=== PATIENT | male | born 1955 | race Caucasian/White ===

== ENCOUNTER 2016-11-11 16:58 | Observation (INO) | payer OTHER ==
[~2016-11-11] VITALS: Ht 188 cm; Wt 150.0 kg
[2016-11-11] MEDS ORDERED: NITROGLYCERIN 0.4 MG SL 25 TABS/BTL SL ONE (17:15)
[2016-11-11] MEDS ORDERED: SODIUM CHLORIDE 0.9% FLUSH 10 ML FLUSH IVF PRN (17:15)
[2016-11-11] MEDS ORDERED: ASPIRIN 325 MG TAB PO ONE (17:15)
[2016-11-11 17:22] VITALS: BP 143/89; PULSE 76; RESP 18; TEMP 98.1; O2SAT 95
[2016-11-11 17:25] VITALS: BP 138/86
--- NOTE | 2016-11-11 17:28 | PD ---
HPI Chief Complaint: Cardiac Complaint Time Seen by Provider: 17:24 Travel History International Travel<30 days: No Contact w/Intl Traveler<30days: No Traveled to known affect area: No History of Present Illness HPI 61-year-old male that presents to the ED via E back for evaluation of new-onset A. fib. Patient reports that he was at work at the [place] [facility] when he started feeling chest pressure and sensation of palpitations. Per patient he did not feel well and he was able to get a hold of one of the doctors there who happens to be his primary care doctor. He did some tests and found that he was in atrial fibrillation. Patient was given 20 mg bolus of diltiazem with resolution of the RVR and was given nitroglycerin as well for the pain. Patient 's pain seems to have improved. Per patient he has no history of atrial fibrillation. He does have a history of coronary artery disease but has not had any stents or CABG. He states that he takes blood pressure medications. Takes an aspirin every day. Denies taking any blood thinners. History of previous diabetes but states that currently under control. No allergies to medication. He states that currently he has some chest pressure but no actual pain. Per patient his discomfort is 4 out of 10. Denies any back pain. No abdominal pain. No shortness of breath. Patient cannot really tell me who the system auditor as as this was done at [facility] and he usually follows with a doctor from the [place] in [place]. PFSH Past Medical History Cardiac Catheterization: Yes Hypertension: Yes Social History Alcohol Use: No Tobacco Use: No Substance Use: No Allergies-Medications (Allergen,Severity, Reaction): Coded Allergies: No Known Allergies (Verified Allergy, Severe, 08/18/04) Reported Meds & Prescriptions Reported Meds & Active Scripts Active Reported Potassium Chloride ER (Potassium Chloride) 20 Meq Tab 20 Meq PO DAILY Lisinopril 5 Mg Tab 5 Mg PO DAILY Furosemide 40 Mg Tab 40 Mg PO DAILY Aspirin Low Dose (Aspirin) 81 Mg Chew 81 Mg CHEW DAILY Amlodipine (Amlodipine Besylate) 10 Mg Tab 10 Mg PO DAILY Review of Systems Except as stated in HPI: all other systems reviewed are Neg Physical Exam Narrative GENERAL: SKIN: Warm and dry. HEAD: Atraumatic. Normocephalic. EYES: Pupils equal and round. No scleral icterus. No injection or drainage. ENT: No nasal bleeding or discharge. Mucous membranes pink and moist. Tongue is midline. No uvula deviation. NECK: Trachea midline. No JVD. CARDIOVASCULAR: Irregular rate and rhythm. No murmurs, S3, S4. No reproducible chest pain with touch. RESPIRATORY: No accessory muscle use. Clear to auscultation. Breath sounds equal bilaterally. GASTROINTESTINAL: Abdomen soft, non-tender, nondistended. Hepatic and splenic margins not palpable. MUSCULOSKELETAL: Extremities without clubbing, cyanosis, or edema. No obvious deformities. Full range of motion of the upper and Lower extremities bilaterally. 2+ pulses bilaterally. NEUROLOGICAL: Awake and alert. No obvious cranial nerve deficits. Motor grossly within normal limits. Five out of 5 muscle strength in the arms and legs. Normal speech. PSYCHIATRIC: Appropriate mood and affect; insight and judgment normal. Data Data Last Documented VS Vital Signs Date Time Temp Pulse Resp B/P Pulse Ox O2 Delivery O2 Flow Rate FiO2 11/11/16 18:11 82 16 138/98 95 Room Air 11/11/16 17:22 98.1 Orders Electrocardiogram (11/11/16 17:10) B-Type Natriuretic Peptide (11/11/16 17:10) Ckmb (Isoenzyme) Profile (11/11/16 17:10) Complete Blood Count With Diff (11/11/16 17:10) Comprehensive Metabolic Panel (11/11/16 17:10) Magnesium (Mg) (11/11/16 17:10) Prothrombin Time / Inr (Pt) (11/11/16 17:10) Act Partial Throm Time (Ptt) (11/11/16 17:10) Troponin I (11/11/16 17:10) Chest, Single Ap (11/11/16 17:10) Ecg Monitoring (11/11/16 17:10) Bilateral Bp Monitoring (11/11/16 17:10) Iv Access Insert/Monitor (11/11/16 17:10) Oximetry (11/11/16 17:10) Oxygen Administration (11/11/16 17:10) Aspirin (Aspirin) (11/11/16 17:15) Sodium Chloride 0.9% Flush (Ns Flush) (11/11/16 17:15) Nitroglycerin Sl (Nitrostat Sl) (11/11/16 17:15) Thyroid Stimulating Hormone (11/11/16 17:40) CKMB (11/11/16 17:10) CKMB% (11/11/16 17:10) Admit Order (Ed Use Only) (11/11/16 19:17) Labs Laboratory Tests Test 11/11/16 17:10 White Blood Count 6.6 TH/MM3 Red Blood Count 4.13 MIL/MM3 Hemoglobin 12.9 GM/DL Hematocrit 38.5 % Mean Corpuscular Volume 93.2 FL Mean Corpuscular Hemoglobin 31.2 PG Mean Corpuscular Hemoglobin 33.5 % Concent Red Cell Distribution Width 13.4 % Platelet Count 177 TH/MM3 Mean Platelet Volume 9.7 FL Neutrophils (%) (Auto) 67.3 % Lymphocytes (%) (Auto) 19.2 % Monocytes (%) (Auto) 10.4 % Eosinophils (%) (Auto) 2.5 % Basophils (%) (Auto) 0.6 % Neutrophils # (Auto) 4.5 TH/MM3 Lymphocytes # (Auto) 1.3 TH/MM3 Monocytes # (Auto) 0.7 TH/MM3 Eosinophils # (Auto) 0.2 TH/MM3 Basophils # (Auto) 0.0 TH/MM3 CBC Comment DIFF FINAL Differential Comment Prothrombin Time 12.1 SEC Prothromb Time International 1.1 RATIO Ratio Activated Partial 26.8 SEC Thromboplast Time Sodium Level 142 MEQ/L Potassium Level 3.8 MEQ/L Chloride Level 110 MEQ/L Carbon Dioxide Level 22.6 MEQ/L Anion Gap 9 MEQ/L Blood Urea Nitrogen 15 MG/DL Creatinine 1.00 MG/DL Estimat Glomerular Filtration 76 ML/MIN Rate Random Glucose 115 MG/DL Calcium Level 8.8 MG/DL Magnesium Level 1.9 MG/DL Total Bilirubin 0.7 MG/DL Aspartate Amino Transf 22 U/L (AST/SGOT) Alanine Aminotransferase 27 U/L (ALT/SGPT) Alkaline Phosphatase 59 U/L Total Creatine Kinase 147 U/L Creatine Kinase MB 3.1 NG/ML Troponin I 0.02 NG/ML B-Type Natriuretic Peptide 281 PG/ML Total Protein 6.4 GM/DL Albumin 3.5 GM/DL Thyroid Stimulating Hormone 1.760 uIU/ML 3rd Gen [facility] Medical Decision Making Medical Screen Exam Complete: Yes Emergency Medical Condition: Yes Medical Record Reviewed: Yes Interpretation(s) EKG show H her fibrillation but no RVR. No sign of ischemia read by me and attending. CBC & BMP Diagram 11/11/16 17:10 CXR WNL troponin and CKMB WNL Coags WNL Differential Diagnosis Atrial fibrillation versus chest pain versus ACS versus A. fib and RVR versus arrhythmia versus CHF versus N STEMI Narrative Course 61-year-old male that presents to the ED for evaluation of possible A. fib. Patient was properly examined and was found to have signs and symptoms consistent with appears to be new onset A. fib. Patient still complains of some chest pressure and after given the diltiazem and the nitroglycerin. Patient was given 1 more dose of nitroglycerin here. Labs and imaging ordered. Here on EKG appears to be atrial fibrillation but no sign of RVR. Heart rate here is 79. Labs and imaging were essentially unremarkable this time. Patient' s heart rate has been stable. Case was discussed in my attending who agrees with admission secondary to chest pain and new onset A. fib. This was discussed with Dr. Sinha who agrees to admission. Procedures EKG Prior to Arrival: Yes Diagnosis Primary Impression: Atrial fibrillation Qualified Code: I48.91 - Atrial fibrillation, unspecified type Additional Impression: Chest pain in adult Admitting Information Admitting Physician Requests: Observation Pablo Marroquin November 11, 2016 17:28
[2016-11-11] MEDS ORDERED: LISI-519 PO (17:37)
[2016-11-11] MEDS ORDERED: ASPI81CH37 CHEW (17:37)
[2016-11-11] MEDS ORDERED: FURO40TA PO (17:37)
[2016-11-11] MEDS ORDERED: AMLO10TA2 PO (17:37)
[2016-11-11 17:38] LABS: AUTOMATED NEUTROPHIL # 4.5 TH/MM3 (1.8-7.7); BASOPHIL % 0.6 % (0.0-2.0); EOSINOPHIL # 0.2 TH/MM3 (0-0.4); EOSINOPHIL % 2.5 % (0.0-4.0); HEMATOCRIT 38.5 % (39.0-51.0); HEMO FLAGS DIFF FINAL; LYMPH % 19.2 % (9.0-44.0); LYMPHOCYTE # 1.3 TH/MM3 (1.0-4.8); MEAN CELL VOLUME 93.2 FL (80.0-100.0); MEAN CORPUSCULAR HEMOGLOBIN 31.2 PG (27.0-34.0); MEAN CORPUSCULAR HGB CONC 33.5 % (32.0-36.0); MONO % 10.4 % (0.0-8.0); NEUT % 67.3 % (16.0-70.0); PLATELET COUNT 177 TH/MM3 (150-450); RED BLOOD COUNT 4.13 MIL/MM3 (4.50-5.90); RED CELL DISTRIBUTION WIDTH 13.4 % (11.6-17.2); WHITE BLOOD COUNT 6.6 TH/MM3 (4.0-11.0)
[2016-11-11] MEDS ORDERED: POTA-163 PO (17:38)
[2016-11-11 17:41] LABS: APTT (PATIENT) 26.8 SEC (24.3-30.1); INTERNATIONAL NORMALIZED RATIO 1.1 RATIO; PROTHROMBIN TIME - PATIENT 12.1 SEC (9.8-11.6)
[2016-11-11 17:53] LABS: ALKALINE PHOSPHATASE 59 U/L (45-117); CREATINE KINASE 147 U/L (39-308); TOTAL BILIRUBIN ADULT 0.7 MG/DL (0.2-1.0)
--- NOTE | 2016-11-11 18:02 | RADRPT ---
EXAM DATE/TIME: 11/11/2016 17:42 [place] COMPARISON: No previous studies available for comparison. INDICATIONS : Chest pain and shortness of breath. MEDICAL HISTORY : Hypertension. SURGICAL HISTORY : None. ENCOUNTER: Initial ACUITY: 1 day PAIN SCORE: 3/10 LOCATION: chest FINDINGS: A single view of the chest demonstrates the lungs to be symmetrically aerated without evidence of mas s, infiltrate or effusion. The cardiomediastinal contours are unremarkable. Osseous structures are intact. CONCLUSION: No acute disease. Vinayak Houston MD on November 11, 2016 at 18:00 Board Certified Radiologist. This report was verified electronically.
[2016-11-11 18:05] LABS: CKMB 3.1 NG/ML (0.5-3.6)
[2016-11-11 18:11] VITALS: BP 138/98; PULSE 82; RESP 16; O2SAT 95
[2016-11-11 18:14] LABS: ALT (GPT) 27 U/L (12-78); ANION GAP 9 MEQ/L (5-15); AST (GOT) 22 U/L (15-37); BICARBONATE 22.6 MEQ/L (21.0-32.0); BLOOD UREA NITROGEN 15 MG/DL (7-18); CHLORIDE 110 MEQ/L (98-107); GLOMERULAR FILTRATION RATE 76 ML/MIN (>89); MAGNESIUM 1.9 MG/DL (1.5-2.5); POTASSIUM 3.8 MEQ/L (3.5-5.1); SODIUM (NA) 142 MEQ/L (136-145)
--- NOTE | 2016-11-11 18:35 | PD ---
Data Data Last Documented VS Vital Signs Date Time Temp Pulse Resp B/P Pulse Ox O2 Delivery O2 Flow Rate FiO2 11/11/16 18:11 82 16 138/98 95 Room Air 11/11/16 17:22 98.1 Orders Electrocardiogram (11/11/16 17:10) B-Type Natriuretic Peptide (11/11/16 17:10) Ckmb (Isoenzyme) Profile (11/11/16 17:10) Complete Blood Count With Diff (11/11/16 17:10) Comprehensive Metabolic Panel (11/11/16 17:10) Magnesium (Mg) (11/11/16 17:10) Prothrombin Time / Inr (Pt) (11/11/16 17:10) Act Partial Throm Time (Ptt) (11/11/16 17:10) Troponin I (11/11/16 17:10) Chest, Single Ap (11/11/16 17:10) Ecg Monitoring (11/11/16 17:10) Bilateral Bp Monitoring (11/11/16 17:10) Iv Access Insert/Monitor (11/11/16 17:10) Oximetry (11/11/16 17:10) Oxygen Administration (11/11/16 17:10) Aspirin (Aspirin) (11/11/16 17:15) Sodium Chloride 0.9% Flush (Ns Flush) (11/11/16 17:15) Nitroglycerin Sl (Nitrostat Sl) (11/11/16 17:15) Thyroid Stimulating Hormone (11/11/16 17:40) CKMB (11/11/16 17:10) CKMB% (11/11/16 17:10) Labs Laboratory Tests Test 11/11/16 17:10 White Blood Count 6.6 TH/MM3 Red Blood Count 4.13 MIL/MM3 Hemoglobin 12.9 GM/DL Hematocrit 38.5 % Mean Corpuscular Volume 93.2 FL Mean Corpuscular Hemoglobin 31.2 PG Mean Corpuscular Hemoglobin 33.5 % Concent Red Cell Distribution Width 13.4 % Platelet Count 177 TH/MM3 Mean Platelet Volume 9.7 FL Neutrophils (%) (Auto) 67.3 % Lymphocytes (%) (Auto) 19.2 % Monocytes (%) (Auto) 10.4 % Eosinophils (%) (Auto) 2.5 % Basophils (%) (Auto) 0.6 % Neutrophils # (Auto) 4.5 TH/MM3 Lymphocytes # (Auto) 1.3 TH/MM3 Monocytes # (Auto) 0.7 TH/MM3 Eosinophils # (Auto) 0.2 TH/MM3 Basophils # (Auto) 0.0 TH/MM3 CBC Comment DIFF FINAL Differential Comment Prothrombin Time 12.1 SEC Prothromb Time International 1.1 RATIO Ratio Activated Partial 26.8 SEC Thromboplast Time Sodium Level 142 MEQ/L Potassium Level 3.8 MEQ/L Chloride Level 110 MEQ/L Carbon Dioxide Level 22.6 MEQ/L Anion Gap 9 MEQ/L Blood Urea Nitrogen 15 MG/DL Creatinine 1.00 MG/DL Estimat Glomerular Filtration 76 ML/MIN Rate Random Glucose 115 MG/DL Calcium Level 8.8 MG/DL Magnesium Level 1.9 MG/DL Total Bilirubin 0.7 MG/DL Aspartate Amino Transf 22 U/L (AST/SGOT) Alanine Aminotransferase 27 U/L (ALT/SGPT) Alkaline Phosphatase 59 U/L Total Creatine Kinase 147 U/L Creatine Kinase MB 3.1 NG/ML Troponin I 0.02 NG/ML B-Type Natriuretic Peptide 281 PG/ML Total Protein 6.4 GM/DL Albumin 3.5 GM/DL MDM Supervised Visit with ALANA: Yes Narrative Course The history, exam, and medical decision-making in the associated midlevel provider note were completed with my assistance. I reviewed and agree with the findings presented. I attest that I had a [id number] encounter with the patient on the same day, and personally performed and documented my assessment and findings in the medical record. *My assessment and Findings: This is a 61-year-old male who presents the emergency department with chest pain and shortness of breath it's been present for 1 day. He is found to be in atrial fibrillation with RVR at the [place]. He is given a dose of IV diltiazem with EMS and his symptoms resolved. He currently has no chest pain. Labs are reassuring. Patient will be admitted for continued rate control and cardiology evaluation. He does have a history of coronary artery disease and says in 2010 he had a 60% blockage which was not able to be stented at that time. Karina Lemus MD November 11, 2016 18:35
[2016-11-11 19:15] VITALS: BP 141/108; PULSE 78; RESP 18; TEMP 98.4; O2SAT 96
--- NOTE | 2016-11-11 19:24 | HHI.HP ---
[facility] Admission Diagnosis new onset a. fib, chest pain Diagnoses: (1) New onset a-fib Diagnosis: Principal (2) Chest pain Diagnosis: Principal (3) Dehydration Diagnosis: Principal (4) HTN (hypertension) Diagnosis: Principal Travel History International Travel<30 Days: No Contact w/Intl Traveler <30 Da: No Traveled to Known Affected Are: No History of Present Illness This is a 61-year-old male with a PMH of HTN was brought here by EMS secondary to complaints of chest pain and palpitations. Patient is an employee at the [employer] and states he had sudden onset of symptoms earlier while at work. Upon EMS arrival, patient was found to be in A. fib with RVR, HR 120s, s/p Cardizem IV and NTG for c/o chest pain, now controlled. No h/o A-fib in the past. On arrival, BP 143/89, HR 76, O2 sat 95% on RA, Afebrile. CBC essentially unremarkable. Chemistry unremarkable except for GFR 76. BNP 281. Troponin negative. EKG with no acute ischemia. CXR with no acute findings. Currently chest pain-free. Review of Systems Except as stated in HPI: all other systems reviewed are Neg ROS: 14 point review of systems otherwise negative. Past Family Social History Past Medical History PMH: HTN Past Surgical History PAST SURGICAL HISTORY: None Allergies: Coded Allergies: No Known Allergies (Verified Allergy, Severe, 08/18/04) Family History PAST FAMILY HISTORY: Reviewed. No h/o DM or CAD Social History PAST SOCIAL HISTORY: Negative for alcohol, tobacco or drugs. Physical Exam Vital Signs Vital Signs Date Time Temp Pulse Resp B/P Pulse Ox O2 Delivery O2 Flow Rate FiO2 11/11/16 18:11 82 16 138/98 95 Room Air 11/11/16 17:25 Room Air 11/11/16 17:25 138/86 11/11/16 17:25 Room Air 11/11/16 17:25 Room Air 11/11/16 17:22 98.1 76 18 143/89 95 Physical Exam PE: GENERAL: Pleasant middle-aged white male in no acute distress. HEENT: PERRLA, EOMI. No scleral icterus or conjunctival pallor. No lid lag or facial droop. CARDIOVASCULAR: Irregularly irregular, in A. fib, rate controlled. No obvious murmurs to auscultation. No chest tenderness to palpation. RESPIRATORY: No obvious rhonchi or wheezing. Clear to auscultation. Breath sounds equal bilaterally. GASTROINTESTINAL: Abdomen soft, non-tender, nondistended. BS normal. MUSCULOSKELETAL: Extremities without clubbing, cyanosis, or edema. No obvious deformities. NEUROLOGICAL: Awake, alert and oriented x4. No focal neurologic deficits. Moving both upper and lower extremities spontaneously. Laboratory Laboratory Tests Test 11/11/16 17:10 White Blood Count 6.6 Red Blood Count 4.13 Hemoglobin 12.9 Hematocrit 38.5 Mean Corpuscular Volume 93.2 Mean Corpuscular Hemoglobin 31.2 Mean Corpuscular Hemoglobin 33.5 Concent Red Cell Distribution Width 13.4 Platelet Count 177 Mean Platelet Volume 9.7 Neutrophils (%) (Auto) 67.3 Lymphocytes (%) (Auto) 19.2 Monocytes (%) (Auto) 10.4 Eosinophils (%) (Auto) 2.5 Basophils (%) (Auto) 0.6 Neutrophils # (Auto) 4.5 Lymphocytes # (Auto) 1.3 Monocytes # (Auto) 0.7 Eosinophils # (Auto) 0.2 Basophils # (Auto) 0.0 CBC Comment DIFF FINAL Differential Comment Prothrombin Time 12.1 Prothromb Time International 1.1 Ratio Activated Partial 26.8 Thromboplast Time Sodium Level 142 Potassium Level 3.8 Chloride Level 110 Carbon Dioxide Level 22.6 Anion Gap 9 Blood Urea Nitrogen 15 Creatinine 1.00 Estimat Glomerular Filtration 76 Rate Random Glucose 115 Calcium Level 8.8 Magnesium Level 1.9 Total Bilirubin 0.7 Aspartate Amino Transf 22 (AST/SGOT) Alanine Aminotransferase 27 (ALT/SGPT) Alkaline Phosphatase 59 Total Creatine Kinase 147 Creatine Kinase MB 3.1 Troponin I 0.02 B-Type Natriuretic Peptide 281 Total Protein 6.4 Albumin 3.5 Thyroid Stimulating Hormone 1.760 3rd Gen Result Diagram: 11/11/16 1710 11/11/16 1710 Assessment and Plan Problem List: (1) New onset a-fib ICD Code: I48.91 Status: Acute (2) Chest pain ICD Code: R07.9 Status: Acute (3) Dehydration ICD Code: E86.0 Status: Acute (4) HTN (hypertension) ICD Code: I10 Status: Acute Assessment and Plan A/P: 1. A-fib: New-Onset. Acute c/o chest pain and palpitations, found to be in A- fib w/ RVR, HR 120's, s/p Cardizem IV by EMS, now rate-controlled. Admit for further Observation, telemetry, check serial enzymes, check Echo, start Metoprolol. Cardiology Consult for further evaluation. 2. Chest Pain: Likely secondary to above, r/o cardiac ischemia. Initial trop negative, EKG w/ no acute ischemia. Check serial enzymes, lipid profile, Hgb A1c, TSH normal. Continue ASA, start Statin and Metoprolol. Cardiology consult as above. 3. Dehydration: GFR 76, previously 96 on 08/19/04. IVF for hydration. Check U /a. Repeat labs in am. 4. HTN: BP 140's on arrival, currently 130's, will monitor. Start Metoprolol. 5. DVT Prophylaxis: Heparin sq 6. Social work for d/c planning as needed. 7. Case discussed at length w/ ER physician. Yoli Handy MD November 11, 2016 19:23
[2016-11-11] MEDS ORDERED: NITROGLYCERIN 2% OINT 1 GM PACKET TOPICAL PRN (19:30)
[2016-11-11] MEDS ORDERED: SODIUM CHLORIDE 0.9% FLUSH 10 ML FLUSH IV FLUSH PRN (19:30)
[2016-11-11] MEDS ORDERED: ACETAMINOPHEN 325 MG TAB PO PRN (19:30)
[2016-11-11] MEDS ORDERED: ONDANSETRON HCL 4 MG/2 ML VIAL IVP PRN (19:30)
[2016-11-11] MEDS ORDERED: MORPHINE SULFATE 4 MG/ML INJ IV PRN (19:30)
[2016-11-11] MEDS ORDERED: BISACODYL 10 MG SUPP RECTAL PRN (19:30)
[2016-11-11] MEDS ORDERED: ACETAMINOPHEN/HYDROcodone 325 MG/5 MG TAB PO PRN (19:30)
[2016-11-11 20:15] VITALS: BP 139/92; PULSE 84; RESP 17; TEMP 98.1; O2SAT 97
[2016-11-11] MEDS: SODIUM CHLOR 0.9% 1000 ML INJ 1,000 ML IV SCH (20:21)
[2016-11-11] MEDS: SODIUM CHLORIDE 0.9% FLUSH 10 ML FLUSH IV FLUSH SCH (20:22)
[2016-11-11] MEDS: HEPARIN SODIUM - SQ 10,000 UNITS/ML VIAL SQ SCH (20:22)
[2016-11-11] MEDS: METOPROLOL TARTRATE 25 MG TAB PO SCH (20:22)
[2016-11-11 23:19] LABS: BACTERIA, URINE FEW /hpf; BLOOD, URINE NEG (NEG); COMMENT (UR) CULTURE INDICATED; CULTURE IF INDICATED CULTURE INDICATED; GLUCOSE,URINE NEG (NEG); HYALINE CAST, URINE 4 /lpf (RARE); KETONE, URINE NEG (NEG); MUCUS URINE FEW /lpf (OCC); NITRITE,URINE NEG (NEG); SQUAMOUS EPITHELIAL CELL URINE 1 /hpf (0-5); URINE COLOR YELLOW (YELLW/STRAW)
[2016-11-12] MEDS: SODIUM CHLOR 0.9% 1000 ML INJ 1,000 ML IV SCH (05:19)
[2016-11-12 05:36] VITALS: BP 120/69; PULSE 86; RESP 18; TEMP 97.9; O2SAT 96
[2016-11-12 05:41] VITALS: PULSE 75
[2016-11-12] MEDS: HEPARIN SODIUM - SQ 10,000 UNITS/ML VIAL SQ SCH (06:01)
[2016-11-12 08:24] LABS: BASOPHIL % 0.5 % (0.0-2.0); EOSINOPHIL # 0.3 TH/MM3 (0-0.4); EOSINOPHIL % 4.2 % (0.0-4.0); HEMATOCRIT 40.5 % (39.0-51.0); HEMO FLAGS DIFF FINAL; LYMPH % 26.9 % (9.0-44.0); LYMPHOCYTE # 1.9 TH/MM3 (1.0-4.8); MEAN CELL VOLUME 93.6 FL (80.0-100.0); MEAN CORPUSCULAR HGB CONC 33.2 % (32.0-36.0); MONO % 10.9 % (0.0-8.0); NEUT % 57.5 % (16.0-70.0); PLATELET COUNT 172 TH/MM3 (150-450); RED BLOOD COUNT 4.33 MIL/MM3 (4.50-5.90); RED CELL DISTRIBUTION WIDTH 13.5 % (11.6-17.2)
[2016-11-12 08:33] VITALS: BP 175/190; PULSE 98; RESP 18; TEMP 96.8; O2SAT 95
[2016-11-12] MEDS ORDERED: PRAVASTATIN SOD 40 MG TAB PO SCH (09:00)
[2016-11-12] MEDS ORDERED: ASPIRIN EC 81 MG TABEC PO SCH (09:00)
[2016-11-12] MEDS: SODIUM CHLORIDE 0.9% FLUSH 10 ML FLUSH IV FLUSH SCH (09:00)
[2016-11-12 09:01] LABS: ALKALINE PHOSPHATASE 62 U/L (45-117); ALT (GPT) 26 U/L (12-78); ANION GAP 7 MEQ/L (5-15); AST (GOT) 15 U/L (15-37); BICARBONATE 26.8 MEQ/L (21.0-32.0); BLOOD UREA NITROGEN 14 MG/DL (7-18); CHLORIDE 108 MEQ/L (98-107); GLOMERULAR FILTRATION RATE 83 ML/MIN (>89); HDL CHOLESTEROL 46.7 MG/DL (40.0-60.0); LDL CHOLESTEROL 71 MG/DL (0-99); POTASSIUM 3.7 MEQ/L (3.5-5.1); SODIUM (NA) 142 MEQ/L (136-145); TOTAL BILIRUBIN ADULT 0.8 MG/DL (0.2-1.0)
[2016-11-12] MEDS: METOPROLOL TARTRATE 25 MG TAB PO SCH (09:07)
--- NOTE | 2016-11-12 09:11 | HHI.PR ---
Subjective Remarks Follow up for palpitations. The patient reports no further episodes of palpitations overnight. He states yesterday he was on the job at the [employer], walking from outside to inside, when he started experiencing his heart "racing" with severe shortness of breath and profuse diaphoresis, denies any chest pain. He states the feeling went away when [facility] arrived and he received IV Cardizem. The patient reports in 2010 he was experiencing angina symptoms and underwent cardiac catheterization in [place], noted to have some moderate coronary artery disease with one vessel 60% blockage, no stents were placed, and he was put on medical management with aspirin and metoprolol. Otherwise, the patient has not had any recent cardiac work up. Of note, the patient states he probably won't be able to stay in the hospital another night, states he has cats at home and nobody to take care of them. He states depending on what the barrel polisher recommends, he may need to sign himself out later today. Objective Vitals Vital Signs Date Time Temp Pulse Resp B/P Pulse Ox O2 Delivery O2 Flow Rate FiO2 11/12/16 08:33 96.8 98 18 175/190 95 11/12/16 05:41 75 11/12/16 05:36 97.9 86 18 120/69 96 11/11/16 21:08 18 11/11/16 20:15 98.1 84 17 139/92 97 11/11/16 19:15 98.4 78 18 141/108 96 11/11/16 18:11 82 16 138/98 95 Room Air 11/11/16 17:25 Room Air 11/11/16 17:25 138/86 11/11/16 17:25 Room Air 11/11/16 17:25 Room Air 11/11/16 17:22 98.1 76 18 143/89 95 Result Diagram: 11/12/16 0806 11/11/161709 Imaging Last Impressions Chest X-Ray 11/11/161709 Signed Impressions: Service Date/Time: Friday, November 11, 2016 17:42 - CONCLUSION: No acute disease. Vinayak Houston MD Objective Remarks GENERAL: Well-nourished, well-developed obese male patient in [facility]. SKIN: Warm and dry. No rash. HEENT: Normocephalic. Atraumatic.Pupils equal and round. Mucous membranes pink and moist. NECK: Supple. Trachea midline. CARDIOVASCULAR: Irregular rate and rhythm. S1, S2 noted. No murmur appreciated. RESPIRATORY: No accessory muscle use. Clear to auscultation. Breath sounds equal bilaterally. GASTROINTESTINAL: Abdomen soft, non-tender, nondistended. Normoactive bowel sounds x4. MUSCULOSKELETAL: No obvious deformities. Trace bilateral lower extremity edema. NEUROLOGICAL: Awake and alert. No obvious cranial nerve deficits. Motor grossly within normal limits. Normal speech. PSYCHIATRIC: Appropriate mood and affect; insight and judgment normal. Medications and IVs Current Medications Medications (Trade) Dose Ordered Sig/[place] Route Start Time Stop Time Status Last Admin (NS Flush) 2 ml UNSCH PRN IVF 11/11/16 17:15 (Lopressor) 25 mg Q12HR PO 11/11/16 21:00 11/11/16 20:22 (Ecotrin Ec) 81 mg DAILY PO 11/12/16 09:00 (Pravachol) 40 mg DAILY PO 11/12/16 09:00 Nitroglycerin 0.5 inch 0.5 inch Q6HR PRN TOPICAL 11/11/16 19:30 (NS 1000 ml Inj) 1,000 ml @ 100 mls/hr Q10H IV 11/11/16 19:19 11/11/16 20:21 (NS Flush) 2 ml UNSCH PRN IV FLUSH 11/11/16 19:30 (NS Flush) 2 ml BID IV FLUSH 11/11/16 21:00 11/11/16 20:22 (Zofran Inj) 4 mg Q6H PRN IVP 11/11/16 19:30 (Dulcolax Supp) 10 mg DAILY PRN RECTAL 11/11/16 19:30 (Heparin Inj) 5,000 units Q8H SQ 11/11/16 21:00 11/12/16 06:01 (Tylenol) 650 mg Q6H PRN PO 11/11/16 19:30 ([place] 5-325 Mg) 1 tab Q4H PRN PO 11/11/16 19:30 (Morphine Inj) 2 mg Q3H PRN IV 11/11/16 19:30 11/11/16 20:19 A/P Problem List: (1) New onset a-fib ICD Code: I48.91 Status: Acute (2) Chest pain ICD Code: R07.9 Status: Acute (3) Dehydration ICD Code: E86.0 Status: Acute (4) HTN (hypertension) ICD Code: I10 Status: Acute Assessment and Plan 61-year-old male with a PMH of HTN was brought here by EMS secondary to complaints of palpitations, shortness of breath, diaphoresis. Patient is an employee at the [employer] and states he had sudden onset of symptoms earlier while at work. Upon EMS arrival, patient was found to be in A. fib with RVR, HR 120s, s/p Cardizem IV and NTG for c/o chest pain, now controlled. No h/o A- fib in the past. New-Onset A-fib with RVR: Per [facility], found to be in A-fib w/ RVR, HR 120's, s/p Cardizem IV by EMS, now rate-controlled. Monitor on telemetry, HR mostly controlled in the 70s, still in afib. ACS ruled out with negative serial cardiac enzymes x3 and EKG without acute ST changes. Check Echo. Started Metoprolol. ChadsVasc score of 1 (HTN). Continue aspirin for now. Cardiology Consult for further evaluation. Atypical Chest Pain: Likely secondary to above, r/o cardiac ischemia. Troponins negative at 0.02, 0.04, 0.04, and EKG w/ no acute ischemia. Lipid profile wnl. Hgb A1c pending. TSH wnl. Continue ASA, start Statin and Metoprolol. Cardiology consult as above. Dehydration: GFR 76, previously 96 on 08/19/04. Continue IVF for hydration. U/ a unremarkable, await urine culture. Repeat labs show improvement. Avoid nephrotoxins. HTN: BP 140's on arrival, currently 130's, will monitor. Started Metoprolol. DVT Prophylaxis: Heparin sq Discharge Planning 1630hrs: Upon review of chart, noticed patient left AGAINST MEDICAL ADVICE. Discussed with Lilia WOMACK who reports the patient left around 12pm today however she notified the barrel polisher who happended to be on the unit at the time, however she did not notify the attending or myself. Per the RN, the patient said he needed to leave to take care of his cats. He stated to the RN that he will plan to have a stress test done at the [employer]. He told the RN that his symptoms resolved and there was no reason for him to stay in the hospital. He signed out AGAINST MEDICAL ADVICE. Judy Suresh PA-C November 12, 2016 09:11
[2016-11-12 10:08] VITALS: BP 160/115
[2016-11-12 10:25] VITALS: PULSE 82
--- NOTE | 2016-11-12 13:46 | EKG ---
Date Performed: 11/11/2016 Time Performed: 17:11:42 PTAGE: 61 years EKG: ATRIAL FIBRILLATION RIGHT BUNDLE BRANCH BLOCK LEFT ANTERIOR FASCICULAR BLOCK MINIMAL VOLTAG E CRITERIA FOR LVH, CONSIDER NORMAL VARIANT Compared to previous tracing, the patient has developed a trial fibrillation with a controlled ventricular response. ABNORMAL ECG PREVIOUS TRACING : 08/17/2004 22.06 DOCTOR: May Koch Interpretating Date/Time 11/12/2016 13:45:54
[2016-11-13 10:49] LABS: HEMOGLOBIN A1a 1.1 %; HEMOGLOBIN A1b 0.9 %; HEMOGLOBIN Ao 84.6 %; HEMOGLOBIN F 1.4 %; HEMOGLOBIN P3 5.2 %
== END 2016-11-12 13:40 | disposition left against medical advice (07) ==
LOC: NEPE 16:58 → NEDA 19:19 → NEPGCP 20:40
PROVIDERS: ADMIT Internal Medicine; ATTEND Internal Medicine
DX: I48.91 Unspecified atrial fibrillation (principal); R07.89 Other chest pain; E86.0 Dehydration; I10 Essential (primary) hypertension; I25.10 Atherosclerotic heart disease of native coronary artery without angina pectoris
CPT/HCPCS: 71010; 80053; 80061; 81001; 82550; 82552; 83036; 83735; 83880; 84443; 84484; 85025; 85610; 85730; 87077; 87086; 87186; 93005; 99285; G0378; J1644; J2270; J7030

== ENCOUNTER 2017-01-17 11:50 | Observation (INO) | payer OTHER ==
[~2017-01-17] VITALS: Ht 188 cm; Wt 153.6 kg
[2017-01-17] VITALS (12 sets, daily range): BP systolic 143–218; BP diastolic 88–140; PULSE 90–125; RESP 18; TEMP 97.7–99; O2SAT 95–100
[~2017-01-17 11:50] MED LIST: AMLO10TA2 PO; ASPI81CH37 CHEW; FURO40TA PO; LISI-519 PO; POTA-163 PO
[2017-01-17] MEDS ORDERED: ACETAMINOPHEN/HYDROcodone 325 MG/5 MG TAB PO ONE (12:15)
[2017-01-17] MEDS ORDERED: DILTIAZEM HCL 25 MG/5 ML VIAL IV ONE (12:15)
[2017-01-17] MEDS ORDERED: ATOR20TA15 PO (12:16)
[2017-01-17] MEDS ORDERED: METO100T9 PO (12:16)
[2017-01-17] MEDS ORDERED: WARF4TAB51 PO (12:17)
--- NOTE | 2017-01-17 12:30 | PD ---
HPI Chief Complaint: Cardiac Complaint Time Seen by Provider: 12:27 Travel History International Travel<30 days: No Contact w/Intl Traveler<30days: No Traveled to known affect area: No History of Present Illness HPI 61-year-old male that presents to the ED for evaluation of headache, neck pain, chest discomfort and palpitations was A. fib and hypertension. Patient reports that he has a history of A. fib. Patient was actually seen by me on October for new onset A. fib. Patient apparently left AMA and was put on metoprolol. Per patient he was doing well on metoprolol but seems like his A. fib is out of control today. Per patient he symptoms started on Monday. Per patient he developed neck pain and headache as well as back pain and chest pain. Per patient his been compliant with his medications but he has not taken any today. He does take Coumadin to prevent stroke and she states that he's been compliant. He has no allergies to medication. He denies any falls. No blurry vision or double vision. Per patient the pain is 8 out of 10 and sharp. He follows with the PA for his care and follows with a sole buffer from the [place]. he does have a history of coronary artery disease, hypertension, high cholesterol and A. fib. PFSH Past Medical History Hx Anticoagulant Therapy: Yes (WARFARIN) Atrial Fibrillation: Yes Anxiety: Yes Depression: Yes Cancer: No Cardiac Catheterization: Yes Cardiovascular Problems: Yes (CAD/AFIB/HTN) High Cholesterol: Yes Congestive Heart Failure: Yes Coronary Artery Disease: Yes Diabetes: Yes Patient Takes Glucophage: Yes Diminished Hearing: No Endocrine: No Genitourinary: No Hypertension: Yes Neurologic: No Psychiatric: No Reproductive: No Respiratory: No Social History Alcohol Use: No Tobacco Use: No Substance Use: No Allergies-Medications (Allergen,Severity, Reaction): Coded Allergies: No Known Allergies (Verified , 01/17/17) Reported Meds & Prescriptions Reported Meds & Active Scripts Active Reported Warfarin 2 Mg Tab 2 Mg PO Metoprolol Succinate ER 24 HR (Metoprolol Succinate) 100 Mg Tab 125 Mg PO BID Atorvastatin (Atorvastatin Calcium) 20 Mg Tab 20 Mg PO HS Potassium Chloride ER (Potassium Chloride) 20 Meq Tab 20 Meq PO DAILY Lisinopril 5 Mg Tab 5 Mg PO DAILY Furosemide 40 Mg Tab 40 Mg PO DAILY Aspirin Low Dose (Aspirin) 81 Mg Chew 81 Mg CHEW DAILY Amlodipine (Amlodipine Besylate) 10 Mg Tab 10 Mg PO DAILY Review of Systems Except as stated in HPI: all other systems reviewed are Neg Physical Exam Narrative GENERAL: SKIN: Warm and dry. HEAD: Atraumatic. Normocephalic. EYES: Pupils equal and round. No scleral icterus. No injection or drainage. ENT: No nasal bleeding or discharge. Mucous membranes pink and moist. Tongue is midline. No uvula deviation. NECK: Trachea midline. No JVD. CARDIOVASCULAR: Regular rate and rhythm. No murmurs, S3, S4. RESPIRATORY: No accessory muscle use. Clear to auscultation. Breath sounds equal bilaterally. GASTROINTESTINAL: Abdomen soft, non-tender, nondistended. Hepatic and splenic margins not palpable. MUSCULOSKELETAL: Extremities without clubbing, cyanosis, or edema. No obvious deformities. Full range of motion of the upper and lower extremities bilaterally. 2+ pulses bilaterally. No lumbar, thoracic, cervical spine tenderness to palpation. Patient does appear to have tenderness to palpation in the musculature on the cervical area. Also on the thoracic upper back. No obvious deformity or rash noted. NEUROLOGICAL: Awake and alert. No obvious cranial nerve deficits. Motor grossly within normal limits. Five out of 5 muscle strength in the arms and legs. Normal speech. PSYCHIATRIC: Appropriate mood and affect; insight and judgment normal. Data Data Last Documented VS Vital Signs Date Time Temp Pulse Resp B/P Pulse Ox O2 Delivery O2 Flow Rate FiO2 01/17/17 12:14 96 Room Air 01/17/17 12:04 91 18 168/115 01/17/17 11:54 97.7 Orders Electrocardiogram (01/17/17 12:03) Complete Blood Count With Diff (01/17/17 12:03) Basic Metabolic Panel (Bmp) (01/17/17 12:03) Ckmb (Isoenzyme) Profile (01/17/17 12:03) Troponin I (01/17/17 12:03) Prothrombin Time / Inr (Pt) (01/17/17 12:03) Act Partial Throm Time (Ptt) (01/17/17 12:03) Magnesium (Mg) (01/17/17 12:03) Thyroid Stimulating Hormone (01/17/17 12:03) Chest, Single Ap (01/17/17 12:03) Ct Brain W/O Iv Contrast(Rout) (01/17/17 12:03) Iv Access Insert/Monitor (01/17/17 12:03) Ecg Monitoring (01/17/17 12:03) Oximetry (01/17/17 12:03) Ct Cerv Spine W/O Contrast (01/17/17 ) Acetamin-Hydrocod 325-5 Mg (Walsh 5-325 (01/17/17 12:15) Diltiazem Inj (Cardizem Inj) (01/17/17 12:15) Admit Order (Ed Use Only) (01/17/17 14:08) Labs Laboratory Tests Test 01/17/17 12:20 White Blood Count 8.3 TH/MM3 Red Blood Count 4.43 MIL/MM3 Hemoglobin 14.0 GM/DL Hematocrit 40.3 % Mean Corpuscular Volume 91.0 FL Mean Corpuscular Hemoglobin 31.7 PG Mean Corpuscular Hemoglobin 34.9 % Concent Red Cell Distribution Width 13.9 % Platelet Count 161 TH/MM3 Mean Platelet Volume 10.1 FL Neutrophils (%) (Auto) 70.7 % Lymphocytes (%) (Auto) 13.5 % Monocytes (%) (Auto) 15.1 % Eosinophils (%) (Auto) 0.3 % Basophils (%) (Auto) 0.4 % Neutrophils # (Auto) 5.9 TH/MM3 Lymphocytes # (Auto) 1.1 TH/MM3 Monocytes # (Auto) 1.3 TH/MM3 Eosinophils # (Auto) 0.0 TH/MM3 Basophils # (Auto) 0.0 TH/MM3 CBC Comment DIFF FINAL Differential Comment Prothrombin Time 12.0 SEC Prothromb Time International 1.1 RATIO Ratio Activated Partial 31.1 SEC Thromboplast Time Sodium Level 137 MEQ/L Potassium Level 3.9 MEQ/L Chloride Level 103 MEQ/L Carbon Dioxide Level 24.8 MEQ/L Anion Gap 9 MEQ/L Blood Urea Nitrogen 11 MG/DL Creatinine 0.93 MG/DL Estimat Glomerular Filtration 83 ML/MIN Rate Random Glucose 121 MG/DL Calcium Level 9.1 MG/DL Magnesium Level 1.8 MG/DL Total Creatine Kinase 66 U/L Troponin I LESS THAN 0.02 NG/ML Thyroid Stimulating Hormone 1.340 uIU/ML 3rd Gen [facility] Medical Decision Making Medical Screen Exam Complete: Yes Emergency Medical Condition: Yes Medical Record Reviewed: Yes Interpretation(s) EKG shows A. fib with RVR. No sign of acute ischemia read by me and attending. Troponin and CK-MB negative. Last Impressions Head CT 01/17/17 1203 Signed Impressions: Service Date/Time: Tuesday, January 17, 2017 13:24 - CONCLUSION: No acute disease. Dalton Freeman MD Chest X-Ray 01/17/17 1203 Signed Impressions: Service Date/Time: Tuesday, January 17, 2017 12:21 - CONCLUSION: No acute disease. Dalton Freeman MD Cervical Spine CT 01/17/17 0000 Signed Impressions: Service Date/Time: Tuesday, January 17, 2017 13:26 - CONCLUSION: 1. No fracture or subluxation. 2. Degenerative changes as described above. Datlon Freeman MD coags WNL CBC & BMP Diagram 01/17/17 12:20 Differential Diagnosis A. fib on RVR versus chest pain versus hypertension versus hypertensive urgency versus CVA versus cephalgia versus headache Narrative Course 61-year-old male that presents to the ED for evaluation of chest pain, headache , neck pain. Patient was properly examined and was found to have signs and symptoms which appear to be consistent with possible A. fib with RVR and muscle pain. Labs and imaging were ordered. Patient was given 1 bolus of Cardizem to help with his blood pressure and his rate. Patient was given Lortab for pain. Labs and imaging showed no sign of acute disease other than A. fib RVR. Patient still complains of the chest discomfort as well as back pain. Case discussed in my attending Dr. Ulloa who evaluated the patient and recommends admission for further workup of the chest pain as well as A. fib. Case discussed with Dr. South who agrees to admission. Diagnosis Primary Impression: Chest pain in adult Additional Impression: Atrial fibrillation Qualified Code: I48.1 - Persistent atrial fibrillation Admitting Information Admitting Physician Requests: Pablo Gerard Jan 17, 2017 12:30
[2017-01-17 12:45] LABS: AUTOMATED NEUTROPHIL # 5.9 TH/MM3 (1.8-7.7); BASOPHIL % 0.4 % (0.0-2.0); EOSINOPHIL % 0.3 % (0.0-4.0); HEMATOCRIT 40.3 % (39.0-51.0); HEMO FLAGS DIFF FINAL; LYMPH % 13.5 % (9.0-44.0); LYMPHOCYTE # 1.1 TH/MM3 (1.0-4.8); MEAN CORPUSCULAR HEMOGLOBIN 31.7 PG (27.0-34.0); MEAN CORPUSCULAR HGB CONC 34.9 % (32.0-36.0); MONO % 15.1 % (0.0-8.0); NEUT % 70.7 % (16.0-70.0); PLATELET COUNT 161 TH/MM3 (150-450); RED BLOOD COUNT 4.43 MIL/MM3 (4.50-5.90); RED CELL DISTRIBUTION WIDTH 13.9 % (11.6-17.2); WHITE BLOOD COUNT 8.3 TH/MM3 (4.0-11.0)
--- NOTE | 2017-01-17 12:46 | RADRPT ---
EXAM DATE/TIME: 01/17/2017 12:21 [facility] COMPARISON: CHEST SINGLE AP, November 11, 2016, 17:42. INDICATIONS : Chest, neck, back and left shoulder pain for 4 days MEDICAL HISTORY : Hypertension. back spasm SURGICAL HISTORY : cardiac cath 2010 ENCOUNTER: Initial ACUITY: 4 - 6 days PAIN SCORE: 9/10 LOCATION: Bilateral chest FINDINGS: A single view of the chest demonstrates the lungs to be symmetrically aerated without evidence of mas s, infiltrate or effusion. The cardiomediastinal contours are unremarkable. Osseous structures are intact. CONCLUSION: No acute disease. Dalton Freeman MD on January 17, 2017 at 12:44 Board Certified Radiologist. This report was verified electronically.
[2017-01-17 12:54] LABS: APTT (PATIENT) 31.1 SEC (24.3-30.1); INTERNATIONAL NORMALIZED RATIO 1.1 RATIO
[2017-01-17 13:02] LABS: ANION GAP 9 MEQ/L (5-15); BICARBONATE 24.8 MEQ/L (21.0-32.0); BLOOD UREA NITROGEN 11 MG/DL (7-18); CHLORIDE 103 MEQ/L (98-107); GLOMERULAR FILTRATION RATE 83 ML/MIN (>89); MAGNESIUM 1.8 MG/DL (1.5-2.5); POTASSIUM 3.9 MEQ/L (3.5-5.1); SODIUM (NA) 137 MEQ/L (136-145)
[2017-01-17 13:13] LABS: CREATINE KINASE 66 U/L (39-308)
--- NOTE | 2017-01-17 13:47 | RADRPT ---
EXAM DATE/TIME: 01/17/2017 13:24 [facility] COMPARISON: No previous studies available for comparison. INDICATIONS : Left-sided neck and head pain. RADIATION DOSE: 56.35 CTDIvol (mGy) MEDICAL HISTORY : Cardiovascular disease. Hypertension. Diabetes SURGICAL HISTORY : None. ENCOUNTER: Initial ACUITY: 4 - 6 days PAIN SCALE: 4/10 LOCATION: Left cranial TECHNIQUE: Multiple contiguous axial images were obtained of the head. Using automated exposure control and adj ustment of the mA and/or kV according to patient size, radiation dose was kept as low as reasonably a chievable to obtain optimal diagnostic quality images. DICOM format image data is available electro nically for review and comparison. FINDINGS: CEREBRUM: The ventricles are normal for age. No evidence of midline shift, mass lesion, hemorrhage or acute in farction. No extra-axial fluid collections are seen. POSTERIOR FOSSA: The cerebellum and brainstem are intact. The 4th ventricle is midline. The cerebellopontine angle i s unremarkable. EXTRACRANIAL: The visualized portion of the orbits is intact. SKULL: The calvaria is intact. No evidence of skull fracture. CONCLUSION: No acute disease. Dalton Freeman MD on January 17, 2017 at 13:45 Board Certified Radiologist. This report was verified electronically.
--- NOTE | 2017-01-17 13:49 | RADRPT ---
EXAM DATE/TIME: 01/17/2017 13:26 [facility] COMPARISON: No previous studies available for comparison. INDICATIONS : Left-sided neck and head pain. RADIATION DOSE: 40.57 CTDIvol (mGy) MEDICAL HISTORY : Cardiovascular disease. Hypertension. Diabetes SURGICAL HISTORY : None. ENCOUNTER: Initial ACUITY: 4 - 6 days PAIN SCALE: 4/10 LOCATION: Left neck TECHNIQUE: Volumetric scanning of the cervical spine was performed. Multiplanar reconstructions in the sagittal, coronal and oblique axial planes were performed. Using automated exposure control and adjustment o f the mA and/or kV according to patient size, radiation dose was kept as low as reasonably achievable to obtain optimal diagnostic quality images. DICOM format image data is available electronically f or review and comparison. FINDINGS: VERTEBRAE: Normal vertebral body height. Multilevel degenerative changes. ALIGNMENT: No evidence of subluxation. C2-C3: The bony spinal canal is normal in size. No evidence of disc bulge or herniation. The neural forami na are bilaterally patent. C3-C4: Posterior disc osteophyte complex without canal stenosis. The neural foramina are bilaterally patent . C4-C5: Posterior disc osteophyte complex with mild canal stenosis. The neural foramina are bilaterally flores nt. C5-C6: Posterior disc osteophyte complex with mild canal stenosis. The neural foramina are bilaterally flores nt. C6-C7: Posterior disc osteophyte complex without canal stenosis. The neural foramina are bilaterally patent . C7-T1: The bony spinal canal is normal in size. No evidence of disc bulge or herniation. The neural forami na are bilaterally patent. CONCLUSION: 1. No fracture or subluxation. 2. Degenerative changes as described above. Dalton Freeman MD on January 17, 2017 at 13:46 Board Certified Radiologist. This report was verified electronically.
[2017-01-17] MEDS ORDERED: LACTULOSE SYRUP 20 GM/30 ML CUP PO PRN (14:15)
[2017-01-17] MEDS ORDERED: SENNOSIDES 8.6 MG TAB PO PRN (14:15)
[2017-01-17] MEDS ORDERED: ACETAMINOPHEN 325 MG TAB PO PRN ×2 (14:15)
[2017-01-17] MEDS ORDERED: oxyCODONE/ACETAMINOPHEN 5 MG/325 MG TAB PO PRN (14:15)
[2017-01-17] MEDS ORDERED: SODIUM CHLORIDE 0.9% FLUSH 10 ML FLUSH IV FLUSH PRN (14:15)
[2017-01-17] MEDS ORDERED: MAGNESIUM HYDROXIDE SUSP 30 ML CUP PO PRN (14:15)
[2017-01-17] MEDS ORDERED: BISACODYL 10 MG SUPP RECTAL PRN (14:15)
[2017-01-17] MEDS ORDERED: ONDANSETRON HCL 4 MG/2 ML VIAL IVP PRN (14:15)
[2017-01-17] MEDS ORDERED: MORPHINE SULFATE 4 MG/ML INJ IV PRN (14:15)
[2017-01-17] MEDS ORDERED: WARFARIN SOD 5 MG TAB PO SCH (16:00)
[2017-01-17] MEDS ORDERED: ENALAPRILAT 1.25 MG/ML VIAL IV PUSH PRN (16:30)
[2017-01-17] MEDS: ACETAMINOPHEN/HYDROcodone 325 MG/10 MG TAB PO PRN ×2 (16:56→21:46)
--- NOTE | 2017-01-17 17:49 | HHI.HP ---
[facility] Service [facility] Primary Care Physician [facility] Admission Diagnosis a. fib, chest pain, r/o ACS Diagnoses: (1) Atrial fibrillation (2) Chest pain (3) HTN (hypertension) (4) Atrial fibrillation with RVR (5) Diabetes mellitus Chief Complaint: Neck pain, headache, chest pain Travel History International Travel<30 Days: No Contact w/Intl Traveler <30 Da: No Traveled to Known Affected Are: No History of Present Illness Patient is a 61-year-old male who presented to emergency department for complaint of neck pain, headache, chest pain, and palpitations that started a few days ago. [place] went to the [place] and was found to be in atrial fibrillation with RVR. His blood pressure was 200/100. He was referred to the ER by his PCP. He has a history of atrial fibrillation and states that he has been compliant with taking his Coumadin. He has had some dietary changes recently, including eating more salads. He states that the neck pain radiates to his shoulders bilaterally. He has trouble turning his head to both the left and the right. He reports ongoing headache, and has had some blurred vision today. Chest pain is sharp, 8/10. Review of Systems Constitutional: DENIES: Fever, Chills, Night Sweats Eyes: DENIES: Blurred vision, Vision loss Ears, nose, mouth, throat: DENIES: Hearing loss Respiratory: DENIES: Cough, Wheezing, Sputum production, Shortness of breath Cardiovascular: COMPLAINS OF: Chest pain, DENIES: Palpitations, Dyspnea on Exertion, Lower Extremity Edema Gastrointestinal: DENIES: Abdominal pain, Constipation, Diarrhea, Nausea, Vomiting Genitourinary: DENIES: Urinary frequency, Urinary incontinence, Urgency, Hematuria, Dysuria, Nocturia Musculoskeletal: COMPLAINS OF: Muscle aches, Neck pain, DENIES: Joint pain Integumentary: DENIES: Pruritus, Rash Hematologic/lymphatic: DENIES: Bruising Neurologic: COMPLAINS OF: Headache Past Family Social History Past Medical History Atrial fibrillation Anxiety/depression Order artery disease Hypertension Diabetes mellitus Past Surgical History Bilateral inguinal hernia repair Repair of incarcerated abdominal hernia Cardiac catheterization Reported Medications Warfarin 2 Mg Tab 2 Mg PO Metoprolol Succinate ER 24 HR (Metoprolol Succinate) 100 Mg Tab 125 Mg PO BID Atorvastatin (Atorvastatin Calcium) 20 Mg Tab 20 Mg PO HS Potassium Chloride ER (Potassium Chloride) 20 Meq Tab 20 Meq PO DAILY Lisinopril 5 Mg Tab 5 Mg PO DAILY Furosemide 40 Mg Tab 40 Mg PO DAILY Aspirin Low Dose (Aspirin) 81 Mg Chew 81 Mg CHEW DAILY Amlodipine (Amlodipine Besylate) 10 Mg Tab 10 Mg PO DAILY Allergies: Coded Allergies: No Known Allergies (Verified , 01/17/17) Family History Emphysema Social History Patient has a remote history of smoking marijuana. Denies tobacco use. Drinks a couple beers per week. Physical Exam Vital Signs Vital Signs Date Time Temp Pulse Resp B/P Pulse Ox O2 Delivery O2 Flow Rate FiO2 01/17/17 17:02 96 01/17/17 16:33 92 01/17/17 16:33 97.8 100 18 143/99 97 01/17/17 16:20 21 01/17/17 12:14 96 Room Air 01/17/17 12:04 91 18 168/115 95 Room Air 01/17/17 11:54 97.7 125 18 218/140 97 Room Air Physical Exam GENERAL: Obese male in no acute distress. HEENT: Normocephalic, atraumatic. Pupils equal, round and reactive. Extraocular movements intact. No scleral icterus. No injection or drainage. Oropharynx is clear. Mucous membranes are moist. CARDIOVASCULAR: Regular rate and rhythm without murmurs, gallops, or rubs. RESPIRATORY: Clear to auscultation. No wheezes, rales, or rhonchi. Breathing is non-labored. GASTROINTESTINAL: Abdomen soft, non-tender, nondistended. EXTREMITIES: No lower extremity edema. No calf tenderness. PSYCH: Alert and oriented x 3. MUSCULOSKELETAL: There is tenderness in the paraspinal muscles of the cervical and thoracic spine. This tenderness extends out to the shoulder. Laboratory Laboratory Tests Test 01/17/17 12:20 White Blood Count 8.3 Red Blood Count 4.43 Hemoglobin 14.0 Hematocrit 40.3 Mean Corpuscular Volume 91.0 Mean Corpuscular Hemoglobin 31.7 Mean Corpuscular Hemoglobin 34.9 Concent Red Cell Distribution Width 13.9 Platelet Count 161 Mean Platelet Volume 10.1 Neutrophils (%) (Auto) 70.7 Lymphocytes (%) (Auto) 13.5 Monocytes (%) (Auto) 15.1 Eosinophils (%) (Auto) 0.3 Basophils (%) (Auto) 0.4 Neutrophils # (Auto) 5.9 Lymphocytes # (Auto) 1.1 Monocytes # (Auto) 1.3 Eosinophils # (Auto) 0.0 Basophils # (Auto) 0.0 CBC Comment DIFF FINAL Differential Comment Prothrombin Time 12.0 Prothromb Time International 1.1 Ratio Activated Partial 31.1 Thromboplast Time Sodium Level 137 Potassium Level 3.9 Chloride Level 103 Carbon Dioxide Level 24.8 Anion Gap 9 Blood Urea Nitrogen 11 Creatinine 0.93 Estimat Glomerular Filtration 83 Rate Random Glucose 121 Calcium Level 9.1 Magnesium Level 1.8 Total Creatine Kinase 66 Troponin I LESS THAN 0.02 Thyroid Stimulating Hormone 1.340 3rd Gen Result Diagram: 01/17/17 1220 01/17/17 1220 Imaging Last Impressions Head CT 01/17/17 1203 Signed Impressions: Service Date/Time: Tuesday, January 17, 2017 13:24 - CONCLUSION: No acute disease. Dalton Freeman MD Chest X-Ray 01/17/17 1203 Signed Impressions: Service Date/Time: Tuesday, January 17, 2017 12:21 - CONCLUSION: No acute disease. Dalton Freeman MD Cervical Spine CT 01/17/17 0000 Signed Impressions: Service Date/Time: Tuesday, January 17, 2017 13:26 - CONCLUSION: 1. No fracture or subluxation. 2. Degenerative changes as described above. Dalton Freeman MD Assessment and Plan Assessment and Plan 1. Atrial fibrillation with RVR: Patient received IV Cardizem 1 in the ER. Heart rate improved, but does remain elevated. Monitor on telemetry. Continue metoprolol. Patient is on Coumadin, however INR is subtherapeutic. 2. Hypertension: Blood pressure significantly elevated upon arrival. Has improved somewhat with medication. Vasotec as needed. Resume home medications. 3. Diabetes mellitus: Monitor Accu-Cheks and cover with sliding scale insulin. 4. Neck pain, headache: Appears to be musculoskeletal in origin, likely muscle strain/spasm. Continue pain control. Head CT is negative. Cervical spine CT is negative. 5. DVT prophylaxis: Lovenox. 6. Chest pain: Check serial cardiac enzymes, EKGs. Problem Qualifiers (1) Atrial fibrillation: Qualified Code: I48.1 - Persistent atrial fibrillation Will South MD Jan 17, 2017 17:49
[2017-01-17] MEDS ORDERED: DEXTROSE 50% IN WATER 50 ML VIAL(D50) IV PRN (18:00)
[2017-01-17] MEDS ORDERED: GLUCAGON 1 MG/ML VIAL OTHER PRN (18:00)
[2017-01-17 19:23] LABS: CREATINE KINASE 50 U/L (39-308)
[2017-01-17] MEDS ORDERED: ENOXAPARIN SODIUM 150 MG/ML SYRINGE SQ SCH ×2 (21:00)
[2017-01-17] MEDS: SODIUM CHLORIDE 0.9% FLUSH 10 ML FLUSH IV FLUSH SCH (21:00)
[2017-01-17] MEDS: INSULIN ASPART SUPPLEMENTAL SCALE SQ SCH (21:00)
[2017-01-17] MEDS ORDERED: METOPROLOL SUCCINATE PO SCH (21:00)
[2017-01-17] MEDS: DOCUSATE SODIUM 50 MG/SENNA 8.6 MG TAB PO SCH (21:00)
[2017-01-17] MEDS: METOPROLOL SUCCINATE 50 MG EXTENDED RELEASE TAB PO SCH (21:46)
[2017-01-17] MEDS: METOPROLOL SUCCINATE 25 MG EXTENDED RELEASE TAB PO SCH (21:46)
[2017-01-17] MEDS: ATORVASTATIN 20 MG TAB PO SCH (21:47)
[2017-01-18] VITALS (25 sets, daily range): BP systolic 129–173; BP diastolic 85–120; PULSE 65–103; RESP 18; TEMP 97.9–98.5; O2SAT 95–97
[2017-01-18 00:50] LABS: ANION GAP 7 MEQ/L (5-15); BICARBONATE 28.4 MEQ/L (21.0-32.0); BLOOD UREA NITROGEN 15 MG/DL (7-18); CHLORIDE 100 MEQ/L (98-107); GLOMERULAR FILTRATION RATE 70 ML/MIN (>89); POTASSIUM 3.8 MEQ/L (3.5-5.1); SODIUM (NA) 135 MEQ/L (136-145)
[2017-01-18 00:57] LABS: CREATINE KINASE 47 U/L (39-308)
[2017-01-18] MEDS: ACETAMINOPHEN/HYDROcodone 325 MG/10 MG TAB PO PRN ×4 (05:26→20:23)
[2017-01-18] MEDS: INSULIN ASPART SUPPLEMENTAL SCALE SQ SCH ×4 (06:05→20:23)
[2017-01-18 06:42] LABS: INTERNATIONAL NORMALIZED RATIO 1.1 RATIO; PROTHROMBIN TIME - PATIENT 12.7 SEC (9.8-11.6)
[2017-01-18 07:05] LABS: AUTOMATED NEUTROPHIL # 4.3 TH/MM3 (1.8-7.7); BASOPHIL % 0.5 % (0.0-2.0); EOSINOPHIL # 0.2 TH/MM3 (0-0.4); EOSINOPHIL % 2.4 % (0.0-4.0); HEMO FLAGS DIFF FINAL; LYMPH % 17.3 % (9.0-44.0); LYMPHOCYTE # 1.1 TH/MM3 (1.0-4.8); MEAN CELL VOLUME 92.2 FL (80.0-100.0); MEAN CORPUSCULAR HEMOGLOBIN 31.6 PG (27.0-34.0); MEAN CORPUSCULAR HGB CONC 34.3 % (32.0-36.0); MONO % 15.2 % (0.0-8.0); NEUT % 64.6 % (16.0-70.0); PLATELET COUNT 166 TH/MM3 (150-450); RED BLOOD COUNT 4.45 MIL/MM3 (4.50-5.90); WHITE BLOOD COUNT 6.6 TH/MM3 (4.0-11.0)
[2017-01-18] MEDS: FUROSEMIDE 40 MG TAB PO SCH (08:48)
[2017-01-18] MEDS: ASPIRIN 81 MG CHEW TAB CHEW SCH (08:48)
[2017-01-18] MEDS: METOPROLOL SUCCINATE 25 MG EXTENDED RELEASE TAB PO SCH ×2 (08:49→20:21)
[2017-01-18] MEDS: METOPROLOL SUCCINATE 50 MG EXTENDED RELEASE TAB PO SCH ×2 (08:49→20:22)
[2017-01-18] MEDS: POTASSIUM CHLORIDE 20 MEQ CONTROLLED RELEASE TAB PO SCH (08:49)
[2017-01-18] MEDS: LISINOPRIL 5 MG TAB PO SCH (08:50)
[2017-01-18] MEDS: DOCUSATE SODIUM 50 MG/SENNA 8.6 MG TAB PO SCH ×2 (08:50→20:22)
[2017-01-18] MEDS: ENOXAPARIN SODIUM 40 MG/0.4 ML SYRINGE SQ SCH (08:50)
[2017-01-18] MEDS: SODIUM CHLORIDE 0.9% FLUSH 10 ML FLUSH IV FLUSH SCH ×2 (08:50→20:21)
--- NOTE | 2017-01-18 08:52 | EKG ---
Date Performed: 01/18/2017 Time Performed: 00:14:38 PTAGE: 61 years EKG: Atrial fibrillation Left axis deviation RBBB with left anterior fascicular block Inferior T wave changes are nonspecific Abnormal ECG PREVIOUS TRACING : 01/17/2017 12.13 DOCTOR: Deven Piña Interpretating Date/Time 01/18/2017 08:50:44
--- NOTE | 2017-01-18 10:27 | MB ---
cc: CHRISTI DHILLON DATE OF CONSULTATION 01/18/2017 DATE OF 1955 HISTORY January 18, 2017 REASON FOR CONSULTATION Atrial fibrillation with RVR HISTORY OF PRESENT ILLNESS 61-year-old male with past medical history significant for hypertension, atrial fibrillation on chronic oral anticoagulation, diabetes, and morbid obesity who [place] in the [place] and was transferred to the ER by his PCP with complaints of neck pain, headache, palpitations and shoulder pain. The patient reports that for the last five days he has been having headache, neck pain, shoulder pain and the pain is worsened by movement of his neck. He was found to be in atrial fibrillation with RVR. He denies any chest pain, shortness of breath, PND, leg edema or noncompliance with medications. Cardiology has been consulted for management of atrial fibrillation. REVIEW OF SYSTEMS Negative except for what is mentioned in HPI. PAST MEDICAL HISTORY 1. Atrial fibrillation 2. Anxiety/depression 3. Hypertension 4. Diabetes mellitus 5. Coronary artery disease 6. Obesity PAST SURGICAL HISTORY 1. Bilateral inguinal hernia repair 2. Repair of incarcerated abdominal hernia CARDIAC HOME MEDICATIONS 1. Warfarin 2 mg p.o. daily 2. Metoprolol 100 mg p.o. b.i.d. 3. Potassium chloride 20 mg p.o. daily 4. Lisinopril 5 mg p.o. daily 5. Lasix 40 mg p.o. daily 6. Aspirin 81 mg p.o. daily 7. Norvasc 5/10 mg p.o. daily ALLERGIES NO KNOWN DRUG ALLERGIES. FAMILY HISTORY Positive for emphysema. SOCIAL HISTORY Denies illicit drug use, tobacco or alcohol abuse. PHYSICAL EXAMINATION VITAL SIGNS: Temperature 98, respiratory rate 18, heart rate 103, blood pressure 158/96, O2 sat 100% on room air. GENERAL: Awake, alert and oriented x3 in no acute distress. NECK: No JVD, no carotid bruits. HEART: Irregularly irregular. No murmurs, rubs or gallops. LUNGS: Clear to auscultation bilaterally. ABDOMEN: Obese. Positive bowel sounds, soft, nontender, and nondistended. EXTREMITIES: No cyanosis or edema. Pulses throughout. DATA CBC hemoglobin 14, hematocrit 41, platelet count of 166, INR 1.1. Chemistries sodium 135, potassium 3.8, BUN 15, creatinine 1.08, troponin less than 0.02 x3. TSH 1.3. IMAGING STUDIES Chest x-ray, no acute cardiopulmonary process. Head CT unremarkable. Cervical spine CT, no acute fractures or subluxation. There are degenerative changes. EKG, atrial fibrillation with adequate ventricular response. Nonspecific ST changes, right bundle branch block. ASSESSMENT/PLAN 61-year-old male with a known history of atrial fibrillation presenting with neck pain, headaches, shoulder pain consulted for atrial fibrillation with RVR. Currently he remains afebrile and hemodynamically stable. He is complaining of some neck pain. His heart rate remains in the 70s. He is still in A. Fib, however, no chest pains. Troponin has been unremarkable and there are no acute ST changes on the EKG. It is likely that the chest pain that he experienced was in the setting of atrial fibrillation with RVR. At this point, I will continue rate control with metoprolol. Continue Coumadin for or anticoagulation. Of note, the INR was 1.1 on admission meaning that he was on a non-effective dose or he was noncompliant with the Coumadin. His CHADS score >2 for which Coumadin is strongly recommended to reduce the risk of stroke. Recommendations: 1. Continue rate control with metoprolol 2. Continue Coumadin. Goal INR 2-3 3. Get a 2-D echocardiogram to assess LV systolic function. Thank you for the opportunity to take part in the care of this patient. We will be available on a p.r.n. basis for any other questions or concerns. MD CHASE Bowie/THELMA /9:58 AM /10:10 AM MAN
--- NOTE | 2017-01-18 10:29 | EKG ---
Date Performed: 01/17/2017 Time Performed: 12:13:17 PTAGE: 61 years EKG: ATRIAL FIBRILLATION WITH RAPID VENTRICULAR RESPONSE RIGHT BUNDLE BRANCH BLOCK LEFT ANTERIOR FASCICULAR BLOCK ABNORMAL ECG PREVIOUS TRACING : 01/17/2017 12.08 DOCTOR: Deven Piña Interpretating Date/Time 01/18/2017 10:27:55
--- NOTE | 2017-01-18 14:35 | HHI.PR ---
Subjective Remarks Follow-up atrial fibrillation, neck/back pain. The patient states that he is still having pain in the upper back, neck, shoulders. He states that his pain is slightly better and he is able to move his neck a little better today. Denies chest pain, dyspnea. Objective Vitals Vital Signs Date Time Temp Pulse Resp B/P Pulse Ox O2 Delivery O2 Flow Rate FiO2 01/18/17 14:12 90 01/18/17 13:45 91 01/18/17 12:58 18 01/18/17 12:45 65 01/18/17 11:18 97.9 82 18 135/85 95 01/18/17 11:18 77 01/18/17 10:57 77 01/18/17 09:00 101 01/18/17 09:00 95 21 01/18/17 08:57 103 01/18/17 07:40 98 01/18/17 07:40 98.5 95 18 158/96 95 01/18/17 06:13 146/106 01/18/17 06:00 72 01/18/17 05:30 77 173/120 97 01/18/17 05:00 72 01/18/17 04:00 81 01/18/17 03:00 72 01/18/17 02:00 74 01/18/17 01:00 80 01/18/17 00:00 98.0 96 18 144/114 97 01/18/17 00:00 82 01/17/17 23:00 92 01/17/17 22:20 95 21 01/17/17 22:00 92 01/17/17 21:00 100 01/17/17 20:00 99.0 99 18 143/88 100 01/17/17 20:00 100 01/17/17 19:00 90 01/17/17 18:01 99 01/17/17 17:02 96 01/17/17 16:33 92 01/17/17 16:33 97.8 100 18 143/99 97 01/17/17 16:20 21 I/O 01/17/17 01/17/17 01/17/17 01/18/17 01/18/17 01/18/17 07:00 15:00 23:00 07:00 15:00 23:00 Intake Total 120 ml 240 ml Balance 120 ml 240 ml Intake Oral 120 ml 240 ml # Voids 3 # Bowel Movements 0 Result Diagram: 01/18/17 0517 01/18/17 0021 Imaging Last Impressions Head CT 01/17/17 1203 Signed Impressions: Service Date/Time: Tuesday, January 17, 2017 13:24 - CONCLUSION: No acute disease. Dalton Freeman MD Chest X-Ray 01/17/17 1203 Signed Impressions: Service Date/Time: Tuesday, January 17, 2017 12:21 - CONCLUSION: No acute disease. Dalton Freeman MD Cervical Spine CT 01/17/17 0000 Signed Impressions: Service Date/Time: Tuesday, January 17, 2017 13:26 - CONCLUSION: 1. No fracture or subluxation. 2. Degenerative changes as described above. Dalton Freeman MD Objective Remarks General: Obese male in no acute distress. Heart: Irregular rhythm. Lungs: Clear to auscultation bilaterally. No wheezes, rales, or rhonchi. Breathing is nonlabored. Abdomen: Soft, nontender, nondistended. Extremities: No lower extremity edema. Psych: Alert and oriented. Procedures None Urinary Catheter: No Vascular Central Line Catheter: No A/P Problem List: (1) Atrial fibrillation ICD Code: I48.91 Status: Acute (2) Chest pain ICD Code: R07.9 Status: Acute (3) HTN (hypertension) ICD Code: I10 Status: Acute (4) Atrial fibrillation with RVR ICD Code: I48.91 Status: Acute (5) Diabetes mellitus ICD Code: E11.9 Status: Acute Assessment and Plan 1. Atrial fibrillation with RVR: Patient received IV Cardizem 1 in the ER. Monitor on telemetry. Continue metoprolol. Patient is on Coumadin, however INR remains subtherapeutic. Rate is well controlled. 2. Hypertension: Blood pressure significantly elevated upon arrival. Now improved. Vasotec as needed. Continue home medications. 3. Diabetes mellitus: Monitor Accu-Cheks and cover with sliding scale insulin. 4. Neck pain, headache: Improving. Appears to be musculoskeletal in origin, likely muscle strain/spasm. Continue pain control. Head CT is negative. Cervical spine CT is negative. 5. DVT prophylaxis: Lovenox. 6. Chest pain: Serial cardiac enzymes are negative. Appreciate cardiology recommendations. Discharge Planning Possible discharge home next 1-2 days. Problem Qualifiers (1) Atrial fibrillation: Qualified Code: I48.1 - Persistent atrial fibrillation Will South MD Jan 18, 2017 14:35
--- NOTE | 2017-01-18 15:44 | ECHRPT ---
Indication: CONCLUSIONS Mildly dilated left ventricle. Mild concentric left ventricular hypertrophy. The left ventricular systolic function is low normal with an estimated ejection fraction in the rang e of 50- 55%. No regional wall motion abnormalities are present. The left atrial size is mildly dilated. The right atrial size is mildly dilated. Trace mitral valve regurgitation. Mitral annular calcification is present. There is mild tricuspid valve regurgitation. Normal estimated pulmonary pressures. BP: / HR: Rhythm: MEASUREMENTS (Male / Female) Normal Values Technical Quality: 2D ECHO LV Diastolic Diameter PLAX 5.6 cm 4.2 - 5.9 / 3.9 - 5.3 cm LV Systolic Diameter PLAX 4.2 cm IVS Diastolic Thickness 1.0 cm 0.6 - 1.0 / 0.6 - 0.9 cm LVPW Diastolic Thickness 0.9 cm 0.6 - 1.0 / 0.6 - 0.9 cm LV Relative Wall Thickness 0.3 RV Internal Dim ED PLAX 2.5 cm LA Systolic Diameter LX 4.3 cm 3.0 - 4.0 / 2.7 - 3.8 cm DOPPLER Mitral E Point Velocity 58.6 cm/s Mitral A Point Velocity 25.5 cm/s Mitral E to A Ratio 2.3 TR Peak Velocity 197.0 cm/s TR Peak Gradient 15.5 mmHg FINDINGS LEFT VENTRICLE Mildly dilated left ventricle. Mild concentric left ventricular hypertrophy. The left ventricular systolic function is low normal with an estimated ejection fraction in the rang e of 50- 55%. No regional wall motion abnormalities are present. RIGHT VENTRICLE Normal right ventricular size and systolic function. LEFT ATRIUM The left atrial size is mildly dilated. RIGHT ATRIUM The right atrial size is mildly dilated. ATRIAL SEPTUM Normal atrial septal thickness without atrial level shunting by limited color doppler interrogation. AORTA The aortic root and proximal ascending aorta are normal in size on limited imaging. MITRAL VALVE Structurally normal mitral valve. Trace mitral valve regurgitation. Mitral annular calcification is present. AORTIC VALVE Trileaflet aortic valve. No aortic valve stenosis or regurgitation. TRICUSPID VALVE There is mild tricuspid valve regurgitation. Structurally normal tricuspid valve. Normal estimated pulmonary pressures. PULMONARY VALVE The pulmonary valve is not well visualized. VESSELS The inferior vena cava is normal in size. PERICARDIUM No pericardial effusion. Deven Piña MD, FACC (Electronically Signed) Final Date:18 January 2017 15:44
[2017-01-18] MEDS ORDERED: WARFARIN SOD 5 MG TAB PO SCH (16:00)
[2017-01-18] MEDS: ATORVASTATIN 20 MG TAB PO SCH (20:22)
[2017-01-19] VITALS (12 sets, daily range): BP systolic 130–144; BP diastolic 79–99; PULSE 67–86; RESP 18; TEMP 97.5–99.1; O2SAT 95–100
[2017-01-19] MEDS: INSULIN ASPART SUPPLEMENTAL SCALE SQ SCH (05:58)
[2017-01-19] MEDS: SODIUM CHLORIDE 0.9% FLUSH 10 ML FLUSH IV FLUSH SCH (09:00)
--- NOTE | 2017-01-19 09:16 | HHI.PR ---
Subjective Remarks Follow up neck pain, a-fib. Patient reports that his neck pain is much improved. He is able to turn his head much more today. He feels that he is ready to go home. Denies headache. Denies numbness/weakness/tingling of extremities. Objective Vitals Vital Signs Date Time Temp Pulse Resp B/P Pulse Ox O2 Delivery O2 Flow Rate FiO2 01/19/17 06:00 76 01/19/17 05:00 74 01/19/17 04:00 76 01/19/17 04:00 97.9 76 18 144/99 99 01/19/17 03:00 72 01/19/17 02:00 72 01/19/17 01:00 70 01/19/17 00:00 97.5 78 18 141/94 95 01/19/17 00:00 72 01/18/17 23:00 76 01/18/17 22:00 70 01/18/17 21:00 80 01/18/17 20:00 73 01/18/17 20:00 97.9 92 18 145/94 95 01/18/17 18:04 76 01/18/17 17:24 90 01/18/17 17:23 18 01/18/17 16:15 89 01/18/17 15:36 98.2 95 18 129/91 96 01/18/17 15:36 99 01/18/17 14:12 90 01/18/17 13:45 91 01/18/17 12:45 65 01/18/17 11:18 97.9 82 18 135/85 95 01/18/17 11:18 77 01/18/17 10:57 77 I/O 01/18/17 01/18/17 01/18/17 01/19/17 01/19/17 01/19/17 06:59 14:59 22:59 06:59 14:59 22:59 Intake Total 240 ml 480 ml 720 ml Balance 240 ml 480 ml 720 ml Intake Oral 240 ml 480 ml 720 ml # Voids 3 6 2 # Bowel Movements 0 Result Diagram: 01/18/17 0517 01/18/17 0021 Imaging Last Impressions Head CT 01/17/17 1203 Signed Impressions: Service Date/Time: Tuesday, January 17, 2017 13:24 - CONCLUSION: No acute disease. Dalton Freeman MD Chest X-Ray 01/17/17 1203 Signed Impressions: Service Date/Time: Tuesday, January 17, 2017 12:21 - CONCLUSION: No acute disease. Dalton Freeman MD Cervical Spine CT 01/17/17 0000 Signed Impressions: Service Date/Time: Tuesday, January 17, 2017 13:26 - CONCLUSION: 1. No fracture or subluxation. 2. Degenerative changes as described above. Dalton Freeman MD Objective Remarks General: Obese male in no acute distress. Sitting up in a chair. Heart: Irregular rhythm. Lungs: Clear to auscultation bilaterally. No wheezes, rales, or rhonchi. Breathing is nonlabored. Abdomen: Soft, nontender, nondistended. Extremities: No lower extremity edema. Psych: Alert and oriented. Procedures None Urinary Catheter: No Vascular Central Line Catheter: No A/P Problem List: (1) Atrial fibrillation ICD Code: I48.91 Status: Acute (2) Chest pain ICD Code: R07.9 Status: Acute (3) HTN (hypertension) ICD Code: I10 Status: Acute (4) Atrial fibrillation with RVR ICD Code: I48.91 Status: Acute (5) Diabetes mellitus ICD Code: E11.9 Status: Acute Assessment and Plan 1. Atrial fibrillation with RVR: Patient received IV Cardizem 1 in the ER. Monitor on telemetry. Continue metoprolol. Patient is on Coumadin, however INR remains subtherapeutic. Rate is well controlled. Labs are pending today. 2. Hypertension: Blood pressure significantly elevated upon arrival. Now improved. Vasotec as needed. Continue home medications. 3. Diabetes mellitus: Monitor Accu-Cheks and cover with sliding scale insulin. 4. Neck pain, headache: Continues to improve. Appears to be musculoskeletal in origin, likely muscle strain/spasm. Continue pain control. Head CT is negative. Cervical spine CT is negative. 5. DVT prophylaxis: Lovenox, coumadin. 6. Chest pain: Serial cardiac enzymes are negative. Appreciate cardiology recommendations. No further workup at this time. Discharge Planning Possible discharge home later today. Problem Qualifiers (1) Atrial fibrillation: Qualified Code: I48.1 - Persistent atrial fibrillation Will South MD Jan 19, 2017 09:15
--- NOTE | 2017-01-19 09:16 | HHI.DCPOC ---
Discharge Care Plan Diagnosis: (1) Atrial fibrillation with RVR (2) HTN (hypertension) (3) Chest pain (4) Diabetes mellitus (5) Neck pain, bilateral Goals to Promote Your Health * To prevent worsening of your condition and complications * To maintain your health at the optimal level Directions to Meet Your Goals Take your medications as prescribed Follow your dietary instruction Follow activity as directed Keep your appointments as scheduled Take your immunizations and boosters as scheduled If your symptoms worsen call your PCP, if no PCP go to Urgent Care Center or Emergency Room Smoking is Dangerous to Your Health. Avoid second hand smoke Call the 24-hour hour crisis hotline for domestic abuse at Will South MD Jan 19, 2017 09:16
[2017-01-19] MEDS: ACETAMINOPHEN/HYDROcodone 325 MG/10 MG TAB PO PRN (10:01)
[2017-01-19] MEDS: POTASSIUM CHLORIDE 20 MEQ CONTROLLED RELEASE TAB PO SCH (10:02)
[2017-01-19] MEDS: ASPIRIN 81 MG CHEW TAB CHEW SCH (10:02)
[2017-01-19] MEDS: LISINOPRIL 5 MG TAB PO SCH (10:02)
[2017-01-19] MEDS: ENOXAPARIN SODIUM 40 MG/0.4 ML SYRINGE SQ SCH (10:02)
[2017-01-19] MEDS: FUROSEMIDE 40 MG TAB PO SCH (10:03)
[2017-01-19] MEDS: METOPROLOL SUCCINATE 25 MG EXTENDED RELEASE TAB PO SCH (10:03)
[2017-01-19] MEDS: METOPROLOL SUCCINATE 50 MG EXTENDED RELEASE TAB PO SCH (10:03)
[2017-01-19] MEDS: DOCUSATE SODIUM 50 MG/SENNA 8.6 MG TAB PO SCH (10:03)
[2017-01-19 10:28] LABS: INTERNATIONAL NORMALIZED RATIO 1.2 RATIO; PROTHROMBIN TIME - PATIENT 13.5 SEC (9.8-11.6)
== END 2017-01-19 11:39 | disposition home or self-care (01) ==
LOC: NEPC 11:50 → NEDA 14:09 → OBSVTOIN 14:18 → INTOOBSV 14:18 → HCIS 16:11
PROVIDERS: ADMIT Family Medicine; ATTEND Family Medicine
DX: I48.91 Unspecified atrial fibrillation (principal); E11.9 Type 2 diabetes mellitus without complications; F41.9 Anxiety disorder, unspecified; R07.9 Chest pain, unspecified; I45.2 Bifascicular block; M54.2 Cervicalgia; I11.0 Hypertensive heart disease with heart failure; I25.10 Atherosclerotic heart disease of native coronary artery without angina pectoris; F32.9 Major depressive disorder, single episode, unspecified; Z79.82 Long term (current) use of aspirin; Z79.899 Other long term (current) drug therapy; Z79.01 Long term (current) use of anticoagulants; I50.9 Heart failure, unspecified; E78.00 Pure hypercholesterolemia, unspecified; E66.9 Obesity, unspecified; Z68.41 Body mass index [BMI] 40.0-44.9, adult
CPT/HCPCS: 70450; 71010; 72125; 80048; 82550; 82948; 83735; 84443; 84484; 85025; 85610; 85730; 93005; 93306; 96374; 99285; G0378; J1650; J1815

== ENCOUNTER 2017-08-14 14:19 | Inpatient (IN) | payer OTHER ==
[~2017-08-14] VITALS: Ht 188 cm; Wt 140.8 kg
[~2017-08-14 14:19] MED LIST changes: -ASPI81CH37 CHEW; +ASPI81CH6 PO; +ATOR20TA15 PO; +METO1TAB43 PO; +WARF4TAB51 PO
[2017-08-14 14:21] VITALS: BP 158/113; PULSE 74; RESP 14; TEMP 97.9; O2SAT 98
[2017-08-14 15:37] LABS: AUTOMATED NEUTROPHIL # 2.9 TH/MM3 (1.8-7.7); BASOPHIL % 0.7 % (0.0-2.0); EOSINOPHIL # 0.3 TH/MM3 (0-0.4); EOSINOPHIL % 4.4 % (0.0-4.0); HEMATOCRIT 44.6 % (39.0-51.0); HEMOGLOBIN 15.5 GM/DL (13.0-17.0); LYMPH % 33.2 % (9.0-44.0); MEAN CELL VOLUME 92.6 FL (80.0-100.0); MEAN CORPUSCULAR HEMOGLOBIN 32.1 PG (27.0-34.0); MEAN CORPUSCULAR HGB CONC 34.7 % (32.0-36.0); MONO % 12.2 % (0.0-8.0); MONOCYTE # 0.7 TH/MM3 (0-0.9); NEUT % 49.5 % (16.0-70.0); PLATELET COUNT 159 TH/MM3 (150-450); RED BLOOD COUNT 4.82 MIL/MM3 (4.50-5.90); RED CELL DISTRIBUTION WIDTH 13.8 % (11.6-17.2); WHITE BLOOD COUNT 5.9 TH/MM3 (4.0-11.0)
[2017-08-14 15:50] LABS: ALBUMIN 3.8 GM/DL (3.4-5.0); AST (GOT) 9 U/L (15-37); BICARBONATE 26.2 MEQ/L (21.0-32.0); BLOOD UREA NITROGEN 11 MG/DL (7-18); CALCIUM 8.9 MG/DL (8.5-10.1); CHLORIDE 105 MEQ/L (98-107); CREATININE 1.26 MG/DL (0.60-1.30); GLOMERULAR FILTRATION RATE 58 ML/MIN (>89); GLUCOSE,RANDOM 100 MG/DL (74-106); SODIUM (NA) 139 MEQ/L (136-145)
[2017-08-14 16:00] LABS: ALKALINE PHOSPHATASE 70 U/L (45-117); ALT (GPT) 12 U/L (12-78); TOTAL BILIRUBIN ADULT 0.9 MG/DL (0.2-1.0)
--- NOTE | 2017-08-14 16:45 | PD ---
HPI Chief Complaint: Suicide Ideation/Attempt Time Seen by Provider: 16:19 Travel History International Travel<30 days: No Contact w/Intl Traveler<30days: No Traveled to known affect area: No History of Present Illness HPI 61y male presents to the ED voluntarily via PD with suicidal ideations. Says he took multiple Flexeril in an attempt to end his life. Says he recently lost his job in his car broke down and he does not have the funds to repair this. Patient states that he has been depressed for 5-6 years but does not take any medication. States he takes hydroxyzine for his allergies and anxiety. Patient states he has not had a suicidal attempt. Denies cardiac, pulmonary, kidney, or other medical issues. PFSH Past Medical History Hx Anticoagulant Therapy: Yes (WARFARIN) Atrial Fibrillation: Yes Anxiety: Yes Depression: Yes Cancer: No Cardiac Catheterization: Yes Cardiovascular Problems: Yes High Cholesterol: Yes Congestive Heart Failure: Yes Coronary Artery Disease: Yes Diabetes: Yes Diminished Hearing: No Endocrine: No Genitourinary: No Hypertension: Yes Musculoskeletal: No Neurologic: No Psychiatric: No Reproductive: No Respiratory: No Social History Alcohol Use: No Tobacco Use: No Substance Use: No Allergies-Medications (Allergen,Severity, Reaction): Coded Allergies: No Known Allergies (Verified Adverse Reaction, Unknown, 08/14/17) Reported Meds & Prescriptions Reported Meds & Active Scripts Active Reported Metoprolol Succinate ER 24 HR (Metoprolol Succinate) 25 Mg Tab 125 Mg PO BID Take 1 tablet with a 100mg tablet for a total dose of 125mg Warfarin 2 Mg Tab 2 Mg PO DAILY Metoprolol Succinate ER 24 HR (Metoprolol Succinate) 100 Mg Tab 125 Mg PO BID Take 1 tablet with 25mg tablet for a total dose of 125mg Atorvastatin (Atorvastatin Calcium) 20 Mg Tab 20 Mg PO HS Potassium Chloride ER (Potassium Chloride) 20 Meq Tab 20 Meq PO DAILY Lisinopril 5 Mg Tab 5 Mg PO DAILY Furosemide 40 Mg Tab 40 Mg PO DAILY Aspirin Low Dose (Aspirin) 81 Mg Chew 81 Mg PO DAILY Amlodipine (Amlodipine Besylate) 10 Mg Tab 10 Mg PO DAILY Review of Systems Except as stated in HPI: all other systems reviewed are Neg Physical Exam Narrative GENERAL: Well-developed well-nourished, obese, slightly lethargic SKIN: Focused skin assessment warm/dry. HEAD: Atraumatic. Normocephalic. EYES: Pupils equal and round. No scleral icterus. No injection or drainage. EOMI ENT: No nasal bleeding or discharge. Mucous membranes pink and moist. NECK: Trachea midline. No JVD. no lymphadenopathy CARDIOVASCULAR: Regular rate and rhythm. No murmur appreciated. RESPIRATORY: No accessory muscle use. Clear to auscultation. Breath sounds equal bilaterally. GASTROINTESTINAL: Abdomen soft, non-tender, nondistended. MUSCULOSKELETAL: No obvious deformities. No clubbing. No cyanosis. No edema. NEUROLOGICAL: Awake and alert. No obvious cranial nerve deficits. Motor grossly within normal limits. slow, slurred speech PSYCHIATRIC: depressed mood, flat affect Data Data Last Documented VS Vital Signs Date Time Temp Pulse Resp B/P (MAP) Pulse Ox O2 Delivery O2 Flow Rate FiO2 08/15/17 06:32 80 18 166/84 (111) 98 Room Air 08/14/17 14:21 97.9 Orders Orders Complete Blood Count With Diff (08/14/17 14:34) Comprehensive Metabolic Panel (08/14/17 14:34) Thyroid Stimulating Hormone (08/14/17 14:34) Electrocardiogram (08/14/17 14:34) Psych Screen (08/14/17 14:34) Drug Screen, Random Urine (08/14/17 14:34) Alcohol (Ethanol) (08/14/17 14:34) Diet Regular Basic (08/15/17 Breakfast) Amlodipine (Norvasc) (08/15/17 09:15) Furosemide (Lasix) (08/15/17 09:15) Metoprolol Tartrate (Lopressor) (08/15/17 09:15) Metoprolol Tartrate (Lopressor) (08/15/17 09:15) Warfarin (Coumadin) (08/15/17 09:15) Lisinopril (Prinivil) (08/15/17 09:15) Aspirin Ec (Ecotrin Ec) (08/15/17 09:15) Diet Regular Basic (08/15/17 Lunch) Labs Laboratory Tests Test 08/14/17 14:59 08/14/17 19:50 White Blood Count 5.9 TH/MM3 Red Blood Count 4.82 MIL/MM3 Hemoglobin 15.5 GM/DL Hematocrit 44.6 % Mean Corpuscular Volume 92.6 FL Mean Corpuscular Hemoglobin 32.1 PG Mean Corpuscular Hemoglobin Concent 34.7 % Red Cell Distribution Width 13.8 % Platelet Count 159 TH/MM3 Mean Platelet Volume 10.0 FL Neutrophils (%) (Auto) 49.5 % Lymphocytes (%) (Auto) 33.2 % Monocytes (%) (Auto) 12.2 % Eosinophils (%) (Auto) 4.4 % Basophils (%) (Auto) 0.7 % Neutrophils # (Auto) 2.9 TH/MM3 Lymphocytes # (Auto) 2.0 TH/MM3 Monocytes # (Auto) 0.7 TH/MM3 Eosinophils # (Auto) 0.3 TH/MM3 Basophils # (Auto) 0.0 TH/MM3 CBC Comment DIFF FINAL Differential Comment Blood Urea Nitrogen 11 MG/DL Creatinine 1.26 MG/DL Random Glucose 100 MG/DL Total Protein 7.0 GM/DL Albumin 3.8 GM/DL Calcium Level 8.9 MG/DL Alkaline Phosphatase 70 U/L Aspartate Amino Transf (AST/SGOT) 9 U/L Alanine Aminotransferase (ALT/SGPT) 12 U/L Total Bilirubin 0.9 MG/DL Sodium Level 139 MEQ/L Potassium Level 3.6 MEQ/L Chloride Level 105 MEQ/L Carbon Dioxide Level 26.2 MEQ/L Anion Gap 8 MEQ/L Estimat Glomerular Filtration Rate 58 ML/MIN Thyroid Stimulating Hormone 3rd Gen 1.580 uIU/ML Ethyl Alcohol Level LESS THAN 3 MG/DL Urine Opiates Screen NEG Urine Barbiturates Screen NEG Urine Amphetamines Screen NEG Urine Benzodiazepines Screen NEG Urine Cocaine Screen NEG Urine Cannabinoids Screen POS MDM Medical Decision Making Medical Screen Exam Complete: Yes Emergency Medical Condition: Yes Differential Diagnosis Suicidal ideations, depression, anxiety Narrative Course 61y male presents to the ED voluntarily via PD with suicidal ideations. Says he took multiple Flexeril in an attempt to end his life. Says he recently lost his job in his car broke down and he does not have the funds to repair this. Patient states that he has been depressed for 5-6 years but does not take any medication. States he takes hydroxyzine for his allergies and anxiety. Patient states he has not had a suicidal attempt. Denies alcohol use or other illicit drugs. Denies fever, chills, chest pain, SOB, nausea, vomiting, diarrhea. Denies chronic medical issues. Vital signs stable. Laboratory Tests Test 2/12/18 14:59 White Blood Count 5.9 TH/MM3 Red Blood Count 4.82 MIL/MM3 Hemoglobin 15.5 GM/DL Hematocrit 44.6 % Mean Corpuscular Volume 92.6 FL Mean Corpuscular Hemoglobin 32.1 PG Mean Corpuscular Hemoglobin Concent 34.7 % Red Cell Distribution Width 13.8 % Platelet Count 159 TH/MM3 Mean Platelet Volume 10.0 FL Neutrophils (%) (Auto) 49.5 % Lymphocytes (%) (Auto) 33.2 % Monocytes (%) (Auto) 12.2 % Eosinophils (%) (Auto) 4.4 % Basophils (%) (Auto) 0.7 % Neutrophils # (Auto) 2.9 TH/MM3 Lymphocytes # (Auto) 2.0 TH/MM3 Monocytes # (Auto) 0.7 TH/MM3 Eosinophils # (Auto) 0.3 TH/MM3 Basophils # (Auto) 0.0 TH/MM3 CBC Comment DIFF FINAL Differential Comment Blood Urea Nitrogen 11 MG/DL Creatinine 1.26 MG/DL Random Glucose 100 MG/DL Total Protein 7.0 GM/DL Albumin 3.8 GM/DL Calcium Level 8.9 MG/DL Alkaline Phosphatase 70 U/L Aspartate Amino Transf (AST/SGOT) 9 U/L Alanine Aminotransferase (ALT/SGPT) 12 U/L Total Bilirubin 0.9 MG/DL Sodium Level 139 MEQ/L Potassium Level 3.6 MEQ/L Chloride Level 105 MEQ/L Carbon Dioxide Level 26.2 MEQ/L Anion Gap 8 MEQ/L Estimat Glomerular Filtration Rate 58 ML/MIN Thyroid Stimulating Hormone 3rd Gen 1.580 uIU/ML Ethyl Alcohol Level LESS THAN 3 MG/DL After review of the EMR, patient does apparently has a history of HTN, A fib, and DM. I suspect that pt withheld this information as he does feel depressed and suicidal. There is a concern for other ingestions or information withheld but he stable at this time and has no other complaints. Pt is moving about the room with minimal gait abnormality. Pt was not able to urinate while in the ED today. I discussed with Psych briefly and they advised he could be transferred to [facility] for further evaluation. Urine will be evaluated at next void. Pt is medically cleared to see Psych. Diagnosis Primary Impression: Suicidal ideations Condition: Stable Caron Barker Aug 14, 2017 16:45
[2017-08-14] MEDS ORDERED: METO1TAB42 PO (17:17)
[2017-08-15 01:52] VITALS: BP 134/87; PULSE 72; RESP 18; O2SAT 99
[2017-08-15 06:32] VITALS: BP 166/84; PULSE 80; RESP 18; O2SAT 98
[2017-08-15] MEDS ORDERED: FUROSEMIDE 40 MG TAB PO ONE (09:15)
[2017-08-15] MEDS ORDERED: METOPROLOL TARTRATE 25 MG TAB PO ONE (09:15)
[2017-08-15] MEDS ORDERED: ASPIRIN EC 81 MG TABEC PO ONE (09:15)
[2017-08-15] MEDS ORDERED: METOPROLOL TARTRATE 100 MG TAB PO ONE (09:15)
[2017-08-15] MEDS ORDERED: WARFARIN SOD 2 MG TAB PO ONE (09:15)
[2017-08-15] MEDS ORDERED: LISINOPRIL 5 MG TAB PO ONE (09:15)
[2017-08-15] MEDS ORDERED: ALUMINUM/MAGNESIUM/SIMETH 30 ML CUP PO PRN (13:15)
[2017-08-15] MEDS ORDERED: ACETAMINOPHEN 325 MG TAB PO PRN (13:15)
[2017-08-15] MEDS ORDERED: MAGNESIUM HYDROXIDE SUSP 30 ML CUP PO PRN (13:15)
[2017-08-15] MEDS ORDERED: LORazepam 1 MG TAB PO PRN (13:15)
[2017-08-15] MEDS ORDERED: LORazepam 0.5 MG TAB PO PRN (13:15)
[2017-08-15] MEDS ORDERED: LORazepam 2 MG/ML VIAL IM PRN ×2 (13:15)
--- NOTE | 2017-08-15 13:21 | HHI.HP ---
Provisional Diagnosis Admission Date [place] I. Major depressive disorder, recurrent, severe, without psychosis, generalized anxiety disorder, cannabis use disorder [place] II. Deferred [place] III. Hypertension, A. fib, arthritis [place] IV. Poor social and family support [place] V. 45 Certification of Person's Competence To Provide Express and Informed Consent I have personally examined Jaren Rae, VANESSA , a person being served at [facility] on, Aug 15, 2017 13:09. Express and informed consent means consent voluntarily given in writing, by a competent person, after sufficient explanation and disclosure of the subject matter involved to enable the person to make a knowing and willful decision without any element of force, fraud, deceit, duress, or other form of constraint or coercion. This person is 18 years of age or older, is not now known to be incompetent to consent to treatment with a guardian advocate, and does not have a health care surrogate or proxy currently making medical treatment decisions. I have found this person to be one of the following: [x] Competent to provide express and informed consent, as defined above, for voluntary admission to this facility and is competent to provide express and informed consent for treatment. He/she has the consistent capacity to make well reasoned, willful, and knowing decisions concerning his or her medical or mental health treatment. The person fully and consistently understands the purpose of the admission for examination/placement and is fully capable of personally exercising all rights assured [place] Incompetent to provide express and informed consent to voluntary admission, and this is incompetent to provide express and informed consent to treatment. The person must be transferred to involuntary status and a petition for a guardian advocate filed with the Circuit Court. [] Refusing to provide express and informed consent to voluntary admission but is competent to provide express and informed consent for treatment. The person must be discharged or transferred to involuntary status. Form shall be completed within 24 hours of a person's arrival at the receiving facility and filed in the clinical record of each person: 1. Admitted on a voluntary basis 2. Permitted to provide express and informed consent to his/her own treatment 3. Allowed to transfer from involuntary to voluntary status 4. Prior to permitting a person to consent to his or her own treatment after having been previously found incompetent to consent to treatment. 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 fib, hypertension, arthritis, who presents to the ED voluntarily via PD with suicidal ideations. Chart was reviewed. Case discussed with nursing charge and also with medical student Dr. Casper. On psychiatric evaluation patient is calm, cooperative, he says that the reason he is here is because he overdosed with intentions to "disappear for little bit ". He says he took multiple Flexeril in an attempt to end his life. Patient reports multiple acute stressor, he recently lost his job in his car broke down and he does not have the funds to repair this. 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 Patient reports that he has been very depressed in the past, he has taken multiple psychotropics, but he has not been taking medication for a long time. The patient also reports intrusive thoughts, increased anxiety. Patient reports that the problem is that he doesn't see and exit to his multiple problems, and he feels too overwhelmed and pessimistic about the future. Patient reports suicidal ideation, no plans at this moment, he contracted for safety in the ER. He reports symptoms of depression, anhedonia, hopelessness, helplessness, sense of worthlessness, guiltiness, decreased energy and appetite, increased anxiety. Patient is fully oriented 3, no attention deficit, no fluctuation of consciousness, no gross cognitive impairment present. During the evaluation the patient is calm, cooperative, logical, coherent and relevant. No agitation , no aggressive behavior, no paranoia, no disorganized speech or thought processes are present. The patient reports daily use of marijuana, occasional use of alcohol, denies other illicit drugs. Review of Systems Constitutional: DENIES: Diaphoretic episodes, Fatigue, Fever, Weight gain, Weight loss, Chills, Dizziness, Change in appetite, Night Sweats Endocrine: DENIES: Heat/cold intolerance, Polydipsia, Polyuria, Polyphagia Eyes: DENIES: Blurred vision, Diplopia, Eye inflammation, Eye pain, Vision loss , Photosensitivity, Double Vision Ears, nose, mouth, throat: DENIES: Tinnitus, Hearing loss, Vertigo, Nasal discharge, Oral lesions, Throat pain, Hoarseness, Ear Pain, Running Nose, Epistaxis, Sinus Pain, Toothache, Odynophagia Respiratory: DENIES: Apneas, Cough, Snoring, Wheezing, Hemoptysis, Sputum production, Shortness of breath Cardiovascular: DENIES: Chest pain, Palpitations, Syncope, Dyspnea on Exertion , PND, Lower Extremity Edema, Orthopnea, Claudication Gastrointestinal: DENIES: Abdominal pain, Black stools, Bloody stools, Constipation, Diarrhea, Nausea, Vomiting, Difficulty Swallowing, Anorexia Genitourinary: DENIES: Sexual dysfunction, Urinary frequency, Urinary incontinence, Urgency, Hematuria, Dysuria, Nocturia, Penile Discharge, Testicular Pain, Testicular Swelling Musculoskeletal: DENIES: Joint pain, Muscle aches, Stiffness, Joint Swelling, Back pain, Neck pain Integumentary: DENIES: Abnormal pigmentation, Nail changes, Pruritus, Rash Hematologic/lymphatic: DENIES: Bruising, Lymphadenopathy Immunologic/allergic: DENIES: Eczema, Urticaria Neurologic: DENIES: Abnormal gait, Headache, Localized weakness, Paresthesias, Seizures, Speech Problems, Tremor, Poor Balance Psychiatric: COMPLAINS OF: Anxiety, Depression, Suicidal Ideation Past Psych History Violence risk - self (6 mos) Increased Substance Abuse History Drugs/Alcohol past 12 months Patient takes 1 or 2 beers per week, uses marijuana every day. Past Family Social History Coded Allergies: No Known Allergies (Verified Adverse Reaction, Unknown, 08/14/17) Reported Medications Metoprolol Succinate ER 24 HR (Metoprolol Succinate ER 24 HR) 25 Mg Tab, 125 MG PO BID, #30 TAB 0 Refills Take 1 tablet with a 100mg tablet for a total dose of 125mg 08/14/17 Warfarin (Warfarin) 2 Mg Tab, 2 MG PO DAILY for Blood Clot Prevention, #30 TAB 0 Refills 01/17/17 Metoprolol Succinate ER 24 HR (Metoprolol Succinate ER 24 HR) 100 Mg Tab, 125 MG PO BID, #30 TAB 0 Refills Take 1 tablet with 25mg tablet for a total dose of 125mg 01/17/17 Atorvastatin (Atorvastatin) 20 Mg Tab, 20 MG PO HS for Cholesterol Management, # 30 TAB 0 Refills 01/17/17 Potassium Chloride ER (Potassium Chloride ER) 20 Meq Tab, 20 MEQ PO DAILY for Electrolyte Replacement, #30 TAB 0 Refills 5/12/17 Lisinopril (Lisinopril) 5 Mg Tab, 5 MG PO DAILY for Blood Pressure Management, # 30 TAB 0 Refills 11/11/16 Furosemide (Furosemide) 40 Mg Tab, 40 MG PO DAILY, #30 TAB 0 Refills 11/11/16 Aspirin (Aspirin Low Dose) 81 Mg Chew, 81 MG PO DAILY, TAB 0 Refills 11/11/16 Amlodipine (Amlodipine) 10 Mg Tab, 10 MG PO DAILY for Blood Pressure Management , #30 TAB 0 Refills 11/11/16 Current Medications Medications (Trade) Dose Ordered Sig/[place] Route Start Time Stop Time Status Last Admin (Norvasc) 10 mg DAILY PO 08/16/17 09:00 UNV (Aspirin Chew) 81 mg DAILY PO 08/16/17 09:00 UNV (Lipitor) 20 mg HS PO 08/15/17 21:00 UNV (Lasix) 40 mg DAILY PO 08/16/17 09:00 UNV (Prinivil) 5 mg DAILY PO 08/16/17 09:00 UNV (Coumadin) 2 mg DAILY PO 08/16/17 09:00 UNV Non-Formulary Medication 125 mg BID PO 08/15/17 21:00 UNV (Ativan) 1 mg Q6H PRN PO 08/15/17 13:15 UNV (Ativan Inj) 1 mg Q6H PRN IM 08/15/17 13:15 UNV (Ativan) 0.5 mg Q12H PRN PO 08/15/17 13:15 UNV (Ativan Inj) 0.5 mg Q12H PRN IM 08/15/17 13:15 UNV (Tylenol) 650 mg Q4H PRN PO 08/15/17 13:15 UNV (Milk Of Magnesia Liq) 30 ml DAILY PRN PO 08/15/17 13:15 UNV (Mag-Al Plus Susp Liq) 30 ml Q6H PRN PO 08/15/17 13:15 UNV (Habitrol 21 Mg Patch.24 Hr) 1 patch DAILY T-DERMAL 08/16/17 09:00 UNV Family Psych History He denies family psychiatric history Social History Patient was born and raised in [place], he lives in [facility] alone, is , has 2 kids, their adult, and he is not connected with them, 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 2) Employed, connected with the [employer] Physical Exam No tremors, no EPS, no stiffness, no psychomotor retardation or agitation. Vital Signs Vital Signs Date Time Temp Pulse Resp B/P (MAP) Pulse Ox O2 Delivery O2 Flow Rate FiO2 08/15/17 06:32 80 18 166/84 (111) 98 Room Air 08/14/17 14:21 97.9 Lab Results Test 08/14/17 14:59 08/14/17 19:50 White Blood Count 5.9 TH/MM3 Red Blood Count 4.82 MIL/MM3 Hemoglobin 15.5 GM/DL Hematocrit 44.6 % Mean Corpuscular Volume 92.6 FL Mean Corpuscular Hemoglobin 32.1 PG Mean Corpuscular Hemoglobin Concent 34.7 % Red Cell Distribution Width 13.8 % Platelet Count 159 TH/MM3 Mean Platelet Volume 10.0 FL Neutrophils (%) (Auto) 49.5 % Lymphocytes (%) (Auto) 33.2 % Monocytes (%) (Auto) 12.2 % Eosinophils (%) (Auto) 4.4 % Basophils (%) (Auto) 0.7 % Neutrophils # (Auto) 2.9 TH/MM3 Lymphocytes # (Auto) 2.0 TH/MM3 Monocytes # (Auto) 0.7 TH/MM3 Eosinophils # (Auto) 0.3 TH/MM3 Basophils # (Auto) 0.0 TH/MM3 CBC Comment DIFF FINAL Differential Comment Blood Urea Nitrogen 11 MG/DL Creatinine 1.26 MG/DL Random Glucose 100 MG/DL Total Protein 7.0 GM/DL Albumin 3.8 GM/DL Calcium Level 8.9 MG/DL Alkaline Phosphatase 70 U/L Aspartate Amino Transf (AST/SGOT) 9 U/L Alanine Aminotransferase (ALT/SGPT) 12 U/L Total Bilirubin 0.9 MG/DL Sodium Level 139 MEQ/L Potassium Level 3.6 MEQ/L Chloride Level 105 MEQ/L Carbon Dioxide Level 26.2 MEQ/L Anion Gap 8 MEQ/L Estimat Glomerular Filtration Rate 58 ML/MIN Thyroid Stimulating Hormone 3rd Gen 1.580 uIU/ML Ethyl Alcohol Level LESS THAN 3 MG/DL Urine Opiates Screen NEG Urine Barbiturates Screen NEG Urine Amphetamines Screen NEG Urine Benzodiazepines Screen NEG Urine Cocaine Screen NEG Urine Cannabinoids Screen POS Mental Status Examination Appearance: Appropriate Consciousness: Alert Orientation: x4 Motor Activity: Normal gait Speech: Unremarkable Language: Adequate Fund of Knowledge: Adequate Attention and Concentration: Adequate Memory: Unremarkable Mood: Sad Affect: Sad Thought Process & Associations: Intact Thought Content: Obsessions Hallucination Type: None Delusion Type: None Suicidal Ideation: Yes Suicidal Plan: No Suicidal Intention: No Homicidal Ideation: No Homicidal Plan: No Homicidal Intention: No Insight: Poor Judgment: Poor Assessment & Plan Problem List: (1) Major depressive disorder, recurrent ICD Codes: F33.9 - Major depressive disorder, recurrent, unspecified Assessment & Plan: On psychiatric evaluation today the patient presents with acute symptomatology of depression in the context of multiple psychosocial stressors, been the most important that he has recently lost his car which is his main source of income. The patient has history of depression, has not been taking medication for a long time. Among these symptoms that he reports patient has anhedonia, hopelessness, helplessness, increased anxiety, suicidal ideation that has lead to a recent suicidal attempt by overdosing with pills. At this moment the patient has an increased risk of harm to himself, he needs psychiatric hospitalization for stabilization. Patient is willing to sign voluntary admission. We'll start Cymbalta 30 mg for depression, milligrams 3 times a day for anxiety. Also will start his medication for hypertension and A. fib. Brief supportive psychotherapy, motivation and psychoeducation provided. Patient can be transferred to psychiatry once a bed is available. 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 Assessment & Plan Estimated LOS: Trev Malone MD Aug 15, 2017 13:20
[2017-08-15 15:00] VITALS: BP 145/90; PULSE 71; RESP 18
[2017-08-15 15:29] LABS: INTERNATIONAL NORMALIZED RATIO 1.2 RATIO; PROTHROMBIN TIME - PATIENT 11.7 SEC (9.8-11.6)
[2017-08-15] MEDS: busPIRone HCL 10 MG TAB PO SCH ×2 (16:09→22:55)
[2017-08-15] MEDS: DULoxetine HCl DR 20 MG CAP PO SCH (16:09)
[2017-08-15 18:00] VITALS: BP 133/106; PULSE 70; RESP 18; TEMP 97.4; O2SAT 98
--- NOTE | 2017-08-15 19:23 | EKG ---
Date Performed: 08/14/2017 Time Performed: 14:56:45 PTAGE: 61 years EKG: ATRIAL FIBRILLATION RIGHT BUNDLE BRANCH BLOCK LEFT ANTERIOR FASCICULAR BLOCK ABNORMAL ECG S med the prior tracing, there has been no significant change PREVIOUS TRACING : 01/18/2017 00.14 DOCTOR: Jaxon Partida Interpretating Date/Time 08/15/2017 19:22:13
[2017-08-15] MEDS: METOPROLOL SUCCINATE 50 MG EXTENDED RELEASE TAB PO SCH (20:48)
[2017-08-15] MEDS: METOPROLOL SUCCINATE 25 MG EXTENDED RELEASE TAB PO SCH (20:49)
[2017-08-15] MEDS ORDERED: ATORVASTATIN 20 MG TAB PO SCH (21:00)
[2017-08-16 06:05] VITALS: BP 166/89; PULSE 73; RESP 17; TEMP 98
[2017-08-16] MEDS: busPIRone HCL 10 MG TAB PO SCH ×2 (06:09→14:10)
[2017-08-16] MEDS ORDERED: GLUCAGON 1 MG/ML VIAL OTHER PRN (07:30)
[2017-08-16] MEDS ORDERED: DEXTROSE 50% IN WATER 50 ML VIAL(D50) IV PUSH PRN (07:30)
[2017-08-16] MEDS: INSULIN ASPART SUPPLEMENTAL SCALE SQ SCH ×2 (08:00→12:00)
[2017-08-16 08:30] LABS: BICARBONATE 30.7 MEQ/L (21.0-32.0); BLOOD UREA NITROGEN 17 MG/DL (7-18); CALCIUM 9.3 MG/DL (8.5-10.1); CHLORIDE 99 MEQ/L (98-107); CHOLESTEROL 153 MG/DL (120-200); CREATININE 1.15 MG/DL (0.60-1.30); GLOMERULAR FILTRATION RATE 65 ML/MIN (>89); GLUCOSE,RANDOM 108 MG/DL (74-106); HDL CHOLESTEROL 40.2 MG/DL (40.0-60.0); LDL CHOLESTEROL 91 MG/DL (0-99); SODIUM (NA) 136 MEQ/L (136-145); TRIGLYCERIDES 107 MG/DL (42-150)
[2017-08-16] MEDS: METOPROLOL SUCCINATE 50 MG EXTENDED RELEASE TAB PO SCH (08:47)
[2017-08-16] MEDS: DULoxetine HCl DR 20 MG CAP PO SCH (08:48)
[2017-08-16] MEDS: METOPROLOL SUCCINATE 25 MG EXTENDED RELEASE TAB PO SCH (08:48)
[2017-08-16] MEDS ORDERED: ASPIRIN 81 MG CHEW TAB PO SCH (09:00)
[2017-08-16] MEDS ORDERED: LISINOPRIL 5 MG TAB PO SCH (09:00)
[2017-08-16] MEDS ORDERED: FUROSEMIDE 40 MG TAB PO SCH (09:00)
[2017-08-16] MEDS ORDERED: NICOTINE 21 MG/24 HR PATCH T-DERMAL SCH (09:00)
[2017-08-16] MEDS ORDERED: WARFARIN SOD 2 MG TAB PO SCH (09:00)
[2017-08-16] MEDS ORDERED: BUSP10TA PO (11:37)
[2017-08-16] MEDS ORDERED: DULO20 PO (11:37)
--- NOTE | 2017-08-16 11:37 | HHI.DS ---
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 fib, hypertension, arthritis, who presents to the ED voluntarily via PD with suicidal ideations. Chart was reviewed. Case discussed with nursing charge and also with medical student Dr. Casper. On psychiatric evaluation patient is calm, cooperative, he says that the reason he is here is because he overdosed with intentions to "disappear for little bit ". He says he took multiple Flexeril in an attempt to end his life. Patient reports multiple acute stressor, he recently lost his job in his car broke down and he does not have the funds to repair this. 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 Patient reports that he has been very depressed in the past, he has taken multiple psychotropics, but he has not been taking medication for a long time. The patient also reports intrusive thoughts, increased anxiety. Patient reports that the problem is that he doesn't see and exit to his multiple problems, and he feels too overwhelmed and pessimistic about the future. Patient reports suicidal ideation, no plans at this moment, he contracted for safety in the ER. He reports symptoms of depression, anhedonia, hopelessness, helplessness, sense of worthlessness, guiltiness, decreased energy and appetite, increased anxiety. Patient is fully oriented 3, no attention deficit, no fluctuation of consciousness, no gross cognitive impairment present. During the evaluation the patient is calm, cooperative, logical, coherent and relevant. No agitation , no aggressive behavior, no paranoia, no disorganized speech or thought processes are present. The patient reports daily use of marijuana, occasional use of alcohol, denies other illicit drugs. Tobacco Use In Past 30 Days: No Tobacco Past 30 Days Alcohol Use: Monthly or Less Hospital Course Patient was admitted to a locked, inpatient psychiatric unit. Appropriate precautions were in place throughout patient's hospital stay. Patient was seen and examined on the unit by psychiatry. Psychotropic medications were adjusted. There was no evidence of any suicidality or homicidality on the inpatient unit. The patient remained in good behavioral control and was compliant with medications. On my examination today: Patient seen and examined with nurse and nurse practitioner. Chart reviewed. Case discussed with nursing staff. No behavioral issues overnight. This morning, the patient reports that his text messages to friend that led to this hospitalization were "attention seeking." The patient denies making any sort of overdose prior to admission and denies any actual suicidal ideation prior to admission. He denies any suicidal or homicidal ideation, intent or plan on direct questioning now and contracts for safety. He does admit to the psychosocial stressors noted in Dr. Allen's note, but with the benefit of some time on the unit finds these stressors more manageable now. He does admit to some mild anxiety, but I can elicit no depressive or hypomanic/manic symptoms presently. He denies any audiovisual hallucinations. I can elicit no delusional beliefs. He denies any previous history of self-harm. He denies a family history of suicide or suicide attempts. He denies any access to guns or firearms. He reports that his use of cannabis is sporadic and denies any other substance use besides the occasional beer. He reports that he previously had done well with BuSpar and is pleased to be back on this medication now. He denies any side effects from medications. He has no physical complaints. With the patient's permission, I have reached out to his friend of 4 donnell Ferreira for collateral information at [phone]. Mr. Ferreira was the recipient of the text messages, and he notes that he called the police. Mr. Ferreira ascertained shortly thereafter that the text messages from patient, in which patient reportedly threatened to take 12 tablets of some medication unfamiliar to Mr. Ferreira, "were a bit of a joke." Mr. Ferreira tried to call the officers off, but at that point the officers reportedly insisted that the patient come in to the ED or be Torres Acted. Mr. Ferreira has absolutely no concerns about the patient being a risk of harm to himself or others at this point. He knows of no previous attempts at self-harm by the patient. Mr. Ferreira is comfortable with patient being discharged home today. I have counseled Mr. Ferreira to have the patient brought back to the emergency department for further psychiatric evaluation at the first sign of any trouble, should this arise, and he agrees to do so. I have also recommended that Mr. Ferreira secure the patient's home with the patient's permission of any potential means of harm to self/others including medications and knives. There are no guns in the home. Suicide and violence risk assessment both suggest lower imminent risk at this time, and the patient's level of function appears to be adequate for outpatient care. Consequently, the patient does not presently meet criteria for involuntary psychiatric hospitalization. I have, of course, recommended that he remain on the unit voluntarily for further observation and also because there are medical issues outstanding, not least of which is his subtherapeutic INR. However, the patient is insisting on discharge today, and I have no basis to retain him over his objection. I will therefore discharge the patient AGAINST MEDICAL ADVICE. I have explained to the patient that he is leaving AGAINST MEDICAL ADVICE. Patient is to follow-up psychiatrically as arranged by counselor. Patient is also to follow-up with primary care. I have counseled the patient regarding warning signs for need to return to the psychiatric emergency room as part of the general safety plan. Results Blood Pressure 166 / 89 Vital Signs Date Time Temp Pulse Resp B/P (MAP) Pulse Ox O2 Delivery O2 Flow Rate FiO2 08/16/17 06:05 98.0 73 17 166/89 (114) 08/15/17 18:00 98 08/15/17 15:00 Room Air Laboratory Tests Test 08/14/17 14:59 08/14/17 19:50 08/15/17 14:12 08/16/17 06:30 Monocytes (%) (Auto) 12.2 % (0.0-8.0) Eosinophils (%) (Auto) 4.4 % (0.0-4.0) Aspartate Amino Transf (AST/SGOT) 9 U/L (15-37) Estimat Glomerular Filtration Rate 58 ML/MIN (>89) 65 ML/MIN (>89) Urine Cannabinoids Screen POS (NEG) Prothrombin Time 11.7 SEC (9.8-11.6) Random Glucose 108 MG/DL (74-106) Laboratory Results Test 08/16/17 06:30 Cholesterol Level 153 MG/DL (120-200) HDL Cholesterol 40.2 MG/DL (40.0-60.0) LDL Cholesterol 91 MG/DL (0-99) Triglycerides Level 107 MG/DL (42-150) Summary of Procedures None done Imaging None done Pending results at discharge: Yes (HgbA1c) Medications # of Antipsychotic meds at D/C: 0 Approp Antipsych med options 1 - Minimum of three failed multiple trials of monotherapy. 2 - Documented plan to taper to monotherapy due to previous use of multiple meds OR cross-taper in progress at D/C. 3 - Documentation of augmentation of Clozapine. 4 - Justification other than those listed in allowable values 1-3, document here : Discharge Discharge Date: Aug 16, 2017 Discharge Diagnosis: (1) Adjustment disorder with mixed disturbance of emotions and conduct Diagnosis: Principal (resolved) ICD Code: F43.25 - Adjustment disorder with mixed disturbance of emotions and conduct (2) Use of cannabis Diagnosis: Secondary ICD Code: F12.90 - Cannabis use, unspecified, uncomplicated Pt Condition on Discharge: Guarded (because AMA discharge) Discharge Disposition: Discharge Home Discharge Instructions Diet Instructions: Diabetic Diet Activities you can perform: Weight Bearing as Love Scheduled Appointment: as per counselor's notes New Orders: BASIC METABOLIC PROF - 1 Week PT/INR - 2-3 Days New Medications: Buspirone (Buspirone) 10 Mg Tab 10 MG PO Q8HR for MENTAL HEALTH for 10 Days, TAB [address] (Cymbalta DR) 20 Mg Capdr 20 MG PO DAILY for MENTAL HEALTH for 10 Days, #10 CAP 2 Refills Continued Medications: Amlodipine (Amlodipine) 10 Mg Tab 10 MG PO DAILY for Blood Pressure Management, #30 TAB 0 Refills Aspirin (Aspirin Low Dose) 81 Mg Chew 81 MG PO DAILY, TAB 0 Refills Atorvastatin (Atorvastatin) 20 Mg Tab 20 MG PO HS for Cholesterol Management, #30 TAB 0 Refills Furosemide (Furosemide) 40 Mg Tab 40 MG PO DAILY, #30 TAB 0 Refills Lisinopril (Lisinopril) 5 Mg Tab 5 MG PO DAILY for Blood Pressure Management, #30 TAB 0 Refills Metoprolol Succinate ER 24 HR (Metoprolol Succinate ER 24 HR) 100 Mg Tab 125 MG PO BID, #30 TAB 0 Refills Take 1 tablet with 25mg tablet for a total dose of 125mg Metoprolol Succinate ER 24 HR (Metoprolol Succinate ER 24 HR) 25 Mg Tab 125 MG PO BID, #30 TAB 0 Refills Take 1 tablet with a 100mg tablet for a total dose of 125mg Potassium Chloride ER (Potassium Chloride ER) 20 Meq Tab 20 MEQ PO DAILY for Electrolyte Replacement, #30 TAB 0 Refills Warfarin (Warfarin) 2 Mg Tab 2 MG PO DAILY for Blood Clot Prevention, #30 TAB 0 Refills Discharge Time > 30 minutes Mental Status Examination Appearance: Appropriate (in hospital attire. Well-groomed and maintaining basic hygiene.) Consciousness: Alert Orientation: x4 Motor Activity: Normal gait, Other (no motor abnormalities noted) Speech: Unremarkable Language: Adequate Fund of Knowledge: Adequate Attention and Concentration: Adequate Memory: Unremarkable Mood: Appropriate Affect: Appropriate Thought Process & Associations: Intact Thought Content: Appropriate Hallucination Type: None Delusion Type: None Suicidal Ideation: No Suicidal Plan: No Suicidal Intention: No Homicidal Ideation: No Homicidal Plan: No Homicidal Intention: No Insight: Fair Judgment: Poor (because leaving AMA) Discharge/Advance Care Plan Health Problems: (1) Major depressive disorder, recurrent Goals to promote your health * To prevent worsening of your condition and complications * To maintain your health at the optimal level Directions to meet your goals Take your medications as prescribed Follow your dietary instruction Follow activity as directed Keep your appointments as scheduled Take your immunizations and boosters as scheduled If your symptoms worsen call your PCP, if no PCP go to Urgent Care Center or Emergency Room For 23/01 questions related to your inpatient stay or results of tests pending at discharge, please contact Dr. Newton Osullivan at Smoking is Dangerous to Your Health. Avoid second hand smoking Newton Osullivan MD Aug 16, 2017 11:37
[2017-08-16 13:27] LABS: INTERNATIONAL NORMALIZED RATIO 1.1 RATIO; PROTHROMBIN TIME - PATIENT 11.1 SEC (9.8-11.6)
[2017-08-16 17:12] LABS: HEMOGLOBIN A1C 5.8 % (4.3-6.0)
== END 2017-08-16 15:55 | disposition left against medical advice (07) | DRG 882 ==
LOC: NEPC 14:19 → NEDA 08-15 13:04 → H260 08-15 17:41
PROVIDERS: ADMIT Psychiatry & Neurology Psychiatry; ATTEND Psychiatry & Neurology Psychiatry
DX: F43.25 Adjustment disorder with mixed disturbance of emotions and conduct (principal); I11.0 Hypertensive heart disease with heart failure; I50.9 Heart failure, unspecified; I48.91 Unspecified atrial fibrillation; Z79.01 Long term (current) use of anticoagulants; R79.1 Abnormal coagulation profile; F41.9 Anxiety disorder, unspecified; F12.90 Cannabis use, unspecified, uncomplicated; M19.90 Unspecified osteoarthritis, unspecified site; I25.10 Atherosclerotic heart disease of native coronary artery without angina pectoris; E66.9 Obesity, unspecified; Z68.39 Body mass index [BMI] 39.0-39.9, adult; E11.9 Type 2 diabetes mellitus without complications
CPT/HCPCS: 80048; 80053; 80061; 80307; 82948; 83036; 84443; 85025; 85610; 93005